=== PATIENT | female | born 1975 | race Hispanic/Latino ===

== ENCOUNTER 2020-05-27 04:16 | Inpatient (IN) | payer SELFPAY ==
[2020-05-27 05:07] LABS: Basophils % 0.3 % (0-1.3); Hematocrit 49.8 % (36.0-45.0); MPV 8.6 fL (7.6-11.3); RBC Red Blood Cell Count 5.63 M/uL (3.86-4.86)
[2020-05-27] MEDS ORDERED: NA CHLORIDE 0.9% 2,000 ML ONE (05:09)
[2020-05-27 05:34] LABS: Arterial Blood Carboxyhemoglob 0.9 % (0-1.5); Blood Gas Oxyhemoglobin 90.3 % (94-97)
[2020-05-27 05:47] LABS: ALT/SGPT 33 U/L (12-78); Albumin 3.3 g/dL (3.4-5.0); Alkaline Phosphatase 126 U/L (45-117); Amylase 38 U/L (25-115); BUN Blood Urea Nitrogen 22 mg/dL (7-18); Bilirubin Direct 0.1 mg/dL (0-0.2); Bilirubin Total 0.5 mg/dL (0.2-1.0); CKMB Creatine Kinase MB < 1.0 ng/mL (0.3-3.6); Creatine Phosphokinase 33 U/L (26-192); Lipase 125 U/L (73-393); Protein, Total 8.9 g/dL (6.4-8.2); Sodium Level 141 mmol/L (136-145); Troponin (Emerg Dept Use Only) < 0.02 ng/mL (0.0-0.045)
[2020-05-27 06:00] LABS: AST/SGOT 37 U/L (15-37); Bicarbonate 7 mmol/L (21-32); Glucose Level 412 mg/dL (74-106); Potassium 4.1 mmol/L (3.5-5.1)
[2020-05-27 06:02] LABS: Blood Morphology Comment NOT SEEN (NOT SEEN); Platelet Estimate ADEQ; Platelets, Giant FEW
[2020-05-27 06:05] LABS: Urine Bacteria <20 /HPF (<20); Urine RBC <5 /HPF (NONE SEEN); Urine Yeast FEW (NONE SEEN)
[2020-05-27 06:05] LABS: Urine Blood TRACE (NEG); Urine Glucose 2+ (NEG); Urine Protein 1+ (NEG); Urine Specific Gravity 1.025 (1.005-1.030)
[2020-05-27] MEDS ORDERED: AZITHROMYCIN 500 MG INJ IVPB ONE (06:25)
[2020-05-27] MEDS ORDERED: NA CHLORIDE 0.9% 250 ML ONE (06:27)
[2020-05-27] MEDS ORDERED: NA CHLORIDE 0.9% 100 ML ONE (06:27)
[2020-05-27] MEDS ORDERED: INSULIN -REGULAR HUMAN 50 UNIT/0.5 ML ML ONE (06:27)
[2020-05-27] MEDS ORDERED: NA CHLORIDE 0.9% 1,000 ML ONE (06:28)
[2020-05-27] MEDS ORDERED: CEFTRIAXONE/SWI 1gm 1 GM/10 ML SYR ONE (06:28)
--- NOTE | 2020-05-27 07:03 | ER ---
Nurse's Notes [facility] Name: Yaa Gregg Age: 45 yrs Sex: Female : 1975 Arrival Date: 05/27/2020 Time: 04:19 Bed 8 Private MD: Diagnosis: Diabetes mellitus due to underlying condition with ketoacidosis without coma;Dyspnea, unspecified Presentation: 05/27 04:30 Chief complaint: Patient's son or daughter states: complaining of shortness of breath rr5 started 1 week ago and it gets worse today when she walking or moving she is having difficulty of breathing. she tested positive last 05/20/20, have been swab last 05/17/20. 04:30 Coronavirus screen: Client denies travel out of the [place] in the last 14 days. rr5 difficulty breathing, fatigue, shortness of breath, Client presents with at least one sign or symptom that may indicate coronavirus-19. Standard/surgical mask placed on the client. Provider contacted for isolation considerations. Client reports previous positive COVID test result. Date of collection: May 17, [address] [facility] [address] Staff notified of need for isolation. Ebola Screen: Patient negative for fever greater than or equal to 101.5 degrees Fahrenheit, and additional compatible Ebola Virus Disease symptoms Patient denies exposure to infectious person. Patient denies travel to an Ebola-affected area in the 21 days before illness onset. Initial Sepsis Screen: Does the patient meet any 2 criteria? RR > 20 per min. HR > 90 bpm. Does the patient have a suspected source of infection? Yes: Productive cough/pneumonia If YES to both, name of provider notified: Conor Lr MD. Risk Assessment: Do you want to hurt yourself or someone else? Patient reports no desire to harm self or others. Onset of symptoms was May 27, 2020. 04:30 Method Of Arrival: Wheelchair rr5 04:30 Acuity: ANGI 2 rr5 Triage Assessment: 05:03 General: Appears distressed. Respiratory: Onset: The symptoms/episode began/occurred mg2 gradually, the patient has moderate shortness of breath. 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 - Social history:: Smoking status: unknown Patient/guardian denies using alcohol, street drugs. Screenin:38 Abuse screen: Denies threats or abuse. Denies injuries from another. Nutritional rr5 screening: No deficits noted. Tuberculosis screening: No symptoms or risk factors identified. Fall Risk IV access (20 points). Total Verduzco Fall Scale indicates No Risk (0-24 pts). Assessment: 05:02 General: Appears distressed, Behavior is calm, cooperative. Pain: Complains of pain in mg2 chest. Neuro: Level of Consciousness is awake, alert, obeys commands, Oriented to person, place, time, situation. Cardiovascular: Rhythm is sinus tachycardia. Respiratory: Reports shortness of breath on exertion Airway is patent Respiratory effort is even, labored, Respiratory pattern is regular, symmetrical, tachypnea GI: No signs and/or symptoms were reported involving the gastrointestinal system. : No signs and/or symptoms were reported regarding the genitourinary system. EENT: No signs and/or symptoms were reported regarding the EENT system. Derm: Skin is intact, is healthy with good turgor, Skin is pink, warm \T\ dry. normal. Musculoskeletal: Circulation, motion, and sensation intact. Capillary refill < 3 seconds. 05:40 Reassessment: Patient appears in no apparent distress at this time. Patient and/or rr5 family updated on plan of care and expected duration. Pain level reassessed. 06:00 Reassessment: patient is on DKA, ED provider with order made and carried out'. rr5 06:13 Reassessment: patient sent to CT scan via [facility]. mg2 06:30 Reassessment: Patient appears in no apparent distress at this time. back from CT scan rr5 insulin drip started. fast breathing noted hooked to nasal cannula at 3 liters per minute. 07:20 Reassessment: RECD REPORT FROM HENNY MATTHEW. 45YO HF P/W SOB, RECENT +COV TEST. PT ADMIT bp FOR DKA, INSULIN GTT AT 8 UNIT/HR. 09:00 Reassessment: No changes from previously documented assessment. Patient and/or family bp updated on plan of care and expected duration. Pain level reassessed. Patient is alert, oriented x 3, equal unlabored respirations, skin warm/dry/pink. PT REMAINS 8 UNIT/HR INSULIN R. 10:00 Reassessment: PT TO ER HOLD, SEE [facility] FOR FURTHER CHARTING. bp Vital Signs: 04:30 BP 182 / 112; Pulse 112; Resp 35; Temp 97.9; Pulse Ox 95% ; Weight 79.38 kg; Height 5 rr5 ft. 0 in. (152.40 cm); Pain 7/10; 05:03 BP 160 / 94; Pulse 109; Resp 33; Pulse Ox 97% on R/A; mg2 06:31 BP 154 / 86; Pulse 109; Resp 34; Pulse Ox 98% on 3 lpm NC; mg2 06:53 BP 160 / 96; Pulse 123; Resp 33; Temp 97.8; Pulse Ox 98% on 3 lpm NC; rr5 07:00 BP 148 / 88; Pulse 116; Resp 36; Pulse Ox 100% ; bp 08:00 BP 146 / 89; Pulse 106; Resp 31; Pulse Ox 96% ; bp 09:00 BP 157 / 88; Pulse 107; Resp 36; Pulse Ox 98% ; bp 10:00 BP 148 / 72; Pulse 94; Resp 29; Pulse Ox 96% ; bp 04:30 Body Mass Index 34.18 (79.38 kg, 152.40 cm) rr5 ED Course: 04:19 Patient arrived in ED. cl3 04:21 Henny Torres, TIFF is Primary Nurse. rr5 04:23 Conor Lr MD is Attending Physician. tw4 04:37 Triage completed. rr5 04:38 Arm band placed on right wrist. rr5 04:38 Patient has correct armband on for positive identification. Placed in gown. Bed in low rr5 position. Call light in reach. secured entrance monitor on. Pulse ox on. NIBP on. 04:38 EKG done, by ED staff, reviewed by Conor Lr MD. rr5 04:50 Inserted saline lock: 20 gauge in left hand, using aseptic technique. ,using aseptic rr5 technique. inserted by agustín MATTHEW Blood collected. 04:57 Chest Single View XRAY In Process Unspecified. EDMS 05:03 No provider procedures requiring assistance completed. mg2 05:18 Urine collected: clean catch specimen, clear. rr5 05:43 Notified ED physician of a critical lab result(s). BiCarb 7, Glucose 412. sg 06:00 Inserted saline lock: 22 gauge in right forearm, using aseptic technique. mg2 06:34 CT Chest For PE Angio In Process Unspecified. EDMS 07:02 Misael Lee MD is Hospitalizing Provider. tw4 07:06 Primary Nurse role handed off by Henny Torres, RN bp 07:06 Godfrey Curtis, TIFF is Primary Nurse. bp 10:25 Patient admitted, IV remains in place. bp Administered Medications: 05:04 Not Given (Physician Discretion): NS 0.9% (30 ml/kg) 30 ml/kg IV at bolus once; Sepsis mg2 Protocol 05:04 Drug: NS 0.9% 1000 ml Route: IV; Rate: 1000 ml; Site: left hand; mg2 06:00 Follow up: Response: No adverse reaction; IV Status: Completed infusion; IV Intake: rr5 1000ml 06:24 Drug: Insulin Drip - (Insulin Regular Human 100 units, NS 0.9% 100 ml) {Co-Signature: mg2 rr5 (Henny Torres RN).} Route: IV; Rate: calculated rate; Site: right forearm; 06:25 Drug: Rocephin - (cefTRIAXone) 1 grams Route: IVPB; Infused Over: 30 mins; Site: left mg2 hand; 07:00 Follow up: Response: No adverse reaction; IV Status: Completed infusion; IV Intake: [id number] 06:25 Drug: AZITHromycin 500 mg Route: IVPB; Infused Over: 1 hrs; Site: left hand; mg2 06:25 Drug: NS 0.9% 1000 ml Route: IV; Rate: 1 bolus; Site: left hand; mg2 Intake: 06:00 IV: 1000ml; Total: 1000ml. rr5 07:00 IV: 10ml; Total: 1010ml. rr5 06:53 voided 3x rr5 Output: 06:53 Other: 3; Total: 0ml. rr5 06:53 voided 3x rr5 Outcome: 07:02 Decision to Hospitalize by Provider. tw4 10:00 Admitted to ER Hold. Please see [facility] for further documentation. bp 10:00 Condition: stable 10:00 Instructed on the need for admit. 18:46 Patient left the ED. tw2 Signatures: Dispatcher [employer] ED[facility] Mitesh Yin, RN RN Timothy Andrewsa, RN RN tw2 Godfrey Curtis, RN RN bp Conor Lr MD MD tw4 Masoud Connell RN RN mg2 Henny Torres RN RN rr5 Ronnie Slaughter 3 Henny Torres RN rr5 Corrections: (The following items were deleted from the chart) 06:32 06:31 BP 154 / 86; Pulse 109bpm; Resp 34bpm; Pulse Ox 98%; mg2 mg2 06:37 06:30 Reassessment: Patient appears in no apparent distress at this time. back from CT rr5 scan insulin drip started rr5
--- NOTE | 2020-05-27 07:03 | EDPHYS ---
Physician Documentation [facility] Name: Yaa Gregg Age: 45 yrs Sex: Female : 1975 Arrival Date: 05/27/2020 Time: 04:19 Bed 8 Private MD: ED Physician Conor Lr HPI: 05/27 06:03 This 45 yrs old Female presents to ER via Wheelchair with complaints of tw4 Breathing Difficulty, Covid+. 06:03 The patient has shortness of breath at rest. Onset: The symptoms/episode began/occurred tw4 1 week(s) ago. Duration: The symptoms are continuous, and are unchanged since they started. The patient's shortness of breath has no apparent modifying factors. Associated signs and symptoms: The patient has no apparent associated signs or symptoms. The patient has not experienced similar symptoms in the past. diagnosed with covid on 05/17. 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 - Social history:: Smoking status: unknown Patient/guardian denies using alcohol, street drugs. ROS: 06:03 Constitutional: Negative for fever, chills, and weight loss, Eyes: Negative for injury, tw4 pain, redness, and discharge, Cardiovascular: Negative for chest pain, palpitations, and edema, Abdomen/GI: Negative for abdominal pain, nausea, vomiting, diarrhea, and constipation, Back: Negative for injury and pain, MS/Extremity: Negative for injury and deformity, Skin: Negative for injury, rash, and discoloration, Neuro: Negative for headache, weakness, numbness, tingling, and seizure. 06:03 Respiratory: Positive for cough, shortness of breath, Negative for cough, dyspnea on exertion, hemoptysis, orthopnea, pleurisy. Exam: 06:03 Constitutional: This is a well developed, well nourished patient who is awake, alert, tw4 and in no acute distress. Head/Face: Normocephalic, atraumatic. Chest/axilla: Normal chest wall appearance and motion. Nontender with no deformity. No lesions are appreciated. Cardiovascular: Regular rate and rhythm with a normal S1 and S2. No gallops, murmurs, or rubs. Normal PMI, no JVD. No pulse deficits. Respiratory: Lungs have equal breath sounds bilaterally, clear to auscultation and percussion. No rales, rhonchi or wheezes noted. No increased work of breathing, no retractions or nasal flaring. Abdomen/GI: Soft, non-tender, with normal bowel sounds. No distension or tympany. No guarding or rebound. No evidence of tenderness throughout. Back: No spinal tenderness. No costovertebral tenderness. Full range of motion. Skin: Warm, dry with normal turgor. Normal color with no rashes, no lesions, and no evidence of cellulitis. MS/ Extremity: Pulses equal, no cyanosis. Neurovascular intact. Full, normal range of motion. Neuro: Awake and alert, GCS 15, oriented to person, place, time, and situation. Cranial nerves II-XII grossly intact. Motor strength 5/5 in all extremities. Sensory grossly intact. Cerebellar exam normal. Normal gait. Vital Signs: 04:30 BP 182 / 112; Pulse 112; Resp 35; Temp 97.9; Pulse Ox 95% ; Weight 79.38 kg; Height 5 rr5 ft. 0 in. (152.40 cm); Pain 7/10; 05:03 BP 160 / 94; Pulse 109; Resp 33; Pulse Ox 97% on R/A; mg2 06:31 BP 154 / 86; Pulse 109; Resp 34; Pulse Ox 98% on 3 lpm NC; mg2 06:53 BP 160 / 96; Pulse 123; Resp 33; Temp 97.8; Pulse Ox 98% on 3 lpm NC; rr5 07:00 BP 148 / 88; Pulse 116; Resp 36; Pulse Ox 100% ; bp 08:00 BP 146 / 89; Pulse 106; Resp 31; Pulse Ox 96% ; bp 09:00 BP 157 / 88; Pulse 107; Resp 36; Pulse Ox 98% ; bp 10:00 BP 148 / 72; Pulse 94; Resp 29; Pulse Ox 96% ; bp 04:30 Body Mass Index 34.18 (79.38 kg, 152.40 cm) rr5 MDM: 05:10 Patient medically screened. tw4 06:03 Data reviewed: vital signs, nurses notes. Counseling: I had a detailed discussion with tw4 the patient and/or guardian regarding: the historical points, exam findings, and any diagnostic results supporting the discharge/admit diagnosis. Special discussion: I discussed with the patient/guardian in detail that at this point there is no indication for admission to the hospital. It is understood, however, that if the symptoms persist or worsen the patient needs to return immediately for re-evaluation. 07:06 Differential diagnosis: CHF exacerbation, Pneumothorax Sepsis Unstable Angina. tw4 Antibiotic administration: Rocephin and Zithromax given. Data interpreted: Pulse oximetry: Interpretation:. Physician consultation: Misael Lee MD regarding admission, to the ICU, patient's condition, and will see patient in ED. 05/27 04:31 Order name: Amylase, Serum; Complete Time: 06:07 [facility] 05/27 04:31 Order name: Basic Metabolic Panel; Complete Time: 06:07 [facility] 05/27 06:07 Interpretation: Normal except: CL 109; CO2 7; GLUC 412; BUN 22. [facility] 05/27 04:31 Order name: Blood Culture Adult (2) [facility] 05/27 04:31 Order name: CBC with Diff; Complete Time: 06:07 [facility] 05/27 06:07 Interpretation: Normal except: WBC 19.5; RBC 5.63; HGB 15.8; HCT 49.8; MCHC 31.8. [facility] 05/27 04:31 Order name: Ckmb; Complete Time: 06:07 [facility] 05/27 04:31 Order name: CPK; Complete Time: 06:07 [facility] 05/27 04:31 Order name: Lactate; Complete Time: 06:07 [facility] 05/27 06:07 Interpretation: Normal except: LAC 2.4. [facility] 05/27 04:31 Order name: LFT's; Complete Time: 06:07 [facility] 05/27 06:08 Interpretation: Normal except: A/G 0.6; ALB 3.3; GLOB 5.6; TP 8.9; ALK 126. [facility] 05/27 04:31 Order name: Lipase; Complete Time: 06:07 [facility] 05/27 04:31 Order name: Procalcitonin; Complete Time: 17:32 [facility] 05/27 04:31 Order name: Protime (+inr); Complete Time: 06:07 5 05/27 04:31 Order name: Ptt, Activated; Complete Time: 06:07 5 05/27 06:08 Interpretation: Normal except: PTT 23.1. tw4 05/27 04:31 Order name: Troponin (emerg Dept Use Only); Complete Time: 06:07 5 05/27 04:31 Order name: Urine Microscopic Only; Complete Time: 06:07 5 05/27 06:08 Interpretation: Normal except: BUD PRESENT. tw4 05/27 05:03 Order name: Glucose, Ancillary Testing; Complete Time: 05:09 EDMS 05/27 05:09 Order name: Manual Differential; Complete Time: 06:07 EDMS 05/27 06:08 Interpretation: Normal except: LYM 6; SEGS 92. tw4 05/27 05:16 Order name: ABG; Complete Time: 06:07 4 05/27 05:23 Order name: Urine Dipstick--Ancillary (enter results); Complete Time: 06:07 2 05/27 05:23 Order name: Urine --Ancillary (enter results); Complete Time: 06:07 2 /16 06:02 Order name: Acetone, Serum; Complete Time: 17:32 tw4 05/27 06:06 Order name: Urine Culture EDMI 05/27 07:13 Order name: COVID-19 bd 05/27 07:37 Order name: Glucose, Ancillary Testing; Complete Time: 17:32 EDMS 12 08:05 Order name: Acetone Level EDMS 05/27 08:05 Order name: Acetone Level; Complete Time: 17:32 EDMS 05/27 08:05 Order name: Acetone Level; Complete Time: 17:32 EDMS 05/27 08:05 Order name: Acetone Level; Complete Time: 17:32 EDMS 05/27 08:05 Order name: Basic Metabolic Panel EDMS 05/27 08:05 Order name: Basic Metabolic Panel; Complete Time: 17:32 EDMS 05/27 08:05 Order name: Basic Metabolic Panel; Complete Time: 17:32 EDMS 05/27 04:31 Order name: Chest Single View XRAY; Complete Time: 17:32 5 05/27 05:10 Order name: CT Chest For PE Angio tw4 05/27 08:05 Order name: Basic Metabolic Panel; Complete Time: 17:32 EDMS 05/27 08:05 Order name: Calcium Level EDMS 05/27 08:05 Order name: Calcium Level EDMS 05/27 08:05 Order name: Calcium Level EDMS 05/27 08:05 Order name: Calcium Level EDMS 05/27 08:05 Order name: Lipid Profile EDMS 05/27 08:05 Order name: Lipid Profile EDMS 05/27 08:05 Order name: Magnesium EDMS 05/27 08:05 Order name: Magnesium EDMS 05/27 08:05 Order name: Magnesium EDMS 05/27 08:05 Order name: Magnesium EDMS 05/27 08:05 Order name: Phosphorus EDMS 05/27 08:05 Order name: Phosphorus EDMS 05/27 08:06 Order name: Phosphorus EDMS 05/27 08:06 Order name: Phosphorus EDMS 05/27 08:31 Order name: Lactate Sepsis 2 HR Follow-up; Complete Time: 17:32 EDMS 05/27 09:01 Order name: Glucose, Ancillary Testing; Complete Time: 17:32 EDMS 05/27 10:41 Order name: Glucose, Ancillary Testing; Complete Time: 17:32 EDMS 05/27 11:09 Order name: SARS-COV-2 RT PCR; Complete Time: 17:32 EDMS 05/27 11:41 Order name: Glucose, Ancillary Testing; Complete Time: 17:32 EDMS 05/27 12:45 Order name: Glucose, Ancillary Testing; Complete Time: 17:32 EDMS 05/27 14:22 Order name: Glucose, Ancillary Testing; Complete Time: 17:32 EDMS 05/27 15:16 Order name: Glucose, Ancillary Testing; Complete Time: 17:32 EDMS 05/27 16:28 Order name: Glucose, Ancillary Testing; Complete Time: 17:32 EDMS 05/27 17:45 Order name: Glucose, Ancillary Testing EDMS 05/27 04:31 Order name: Accucheck; Complete Time: 04:49 rr5 05/27 04:31 Order name: Cardiac monitoring; Complete Time: 04:49 rr5 05/27 04:31 Order name: EKG - Nurse/Tech; Complete Time: 04:49 rr5 05/27 04:31 Order name: IV Saline Lock - Large Bore; Complete Time: 04:50 rr5 05/27 04:31 Order name: Labs collected and sent; Complete Time: 04:50 rr5 05/27 04:31 Order name: O2 Per Protocol; Complete Time: 04:50 rr5 05/27 04:31 Order name: O2 Sat Monitoring; Complete Time: 04:50 rr5 05/27 04:31 Order name: Urine Dipstick-Ancillary (obtain specimen); Complete Time: 05:18 rr5 05/27 04:34 Order name: IV Saline Lock; Complete Time: 04:50 tw4 05/27 05:18 Order name: Urine Test (obtain specimen); Complete Time: 05:18 rr5 05/27 08:06 Order name: CONS Pharmacy Consult EDMS 05/27 08:06 Order name: Dietitian Consult EDMS 05/27 08:06 Order name: NPO EDMS EC:27 Rate is 116 beats/min. Rhythm is regular. QRS [place] is Normal. CA interval is normal. tw4 QRS interval is normal. QT interval is normal. No Q waves. T waves are Normal. T waves are Inverted in leads aVF, V5, V6. No ST changes noted. Clinical impression: Sinus tachycardia. Interpreted by me. Reviewed by me. Administered Medications: 05:04 Not Given (Physician Discretion): NS 0.9% (30 ml/kg) 30 ml/kg IV at bolus once; Sepsis mg2 Protocol 05:04 Drug: NS 0.9% 1000 ml Route: IV; Rate: 1000 ml; Site: left hand; mg2 06:00 Follow up: Response: No adverse reaction; IV Status: Completed infusion; IV Intake: rr5 1000ml 06:24 Drug: Insulin Drip - (Insulin Regular Human 100 units, NS 0.9% 100 ml) {Co-Signature: mg2 rr5 (Alireza Torres RN).} Route: IV; Rate: calculated rate; Site: right forearm; 06:25 Drug: Rocephin - (cefTRIAXone) 1 grams Route: IVPB; Infused Over: 30 mins; Site: left mg2 hand; 07:00 Follow up: Response: No adverse reaction; IV Status: Completed infusion; IV Intake: 00zosl0 06:25 Drug: AZITHromycin 500 mg Route: IVPB; Infused Over: 1 hrs; Site: left hand; mg2 06:25 Drug: NS 0.9% 1000 ml Route: IV; Rate: 1 bolus; Site: left hand; mg2 Disposition: 05/27/20 07:02 Hospitalization ordered by Misael Lee for Inpatient Admission. Preliminary diagnosis are Diabetes mellitus due to underlying condition with ketoacidosis without coma, Dyspnea, unspecified. - Bed requested for Intensive Care Unit. - Status is Inpatient Admission. tw2 - Condition is Fair. - Problem is new. - Symptoms are unchanged. Signatures: Dispatcher [employer] EDMS Linda Villalobos, LATIN AMERICAN STUDIES DIRECTOR-C LATIN AMERICAN STUDIES DIRECTOR-Csnw Megan West, TIFF RN aa5 Jarad Bhardwaj PA PA jr8 Abbi Dowell RN RN tw2 Godfrey Curtis RN RN bp Conor Lr MD MD tw4 Masoud Connell RN RN mg2 Alireza Torres RN RN rr5 Alireza Torres RN rr5 Corrections: (The following items were deleted from the chart) 06:05 06:03 Constitutional: Negative for fever, chills, and weight loss, Eyes: Negative for tw4 injury, pain, redness, and discharge, Cardiovascular: Negative for chest pain, palpitations, and edema, Respiratory: Negative for shortness of breath, cough, wheezing, and pleuritic chest pain, Abdomen/GI: Negative for abdominal pain, nausea, vomiting, diarrhea, and constipation, Back: Negative for injury and pain, Skin: Negative for injury, rash, and discoloration, Neuro: Negative for headache, weakness, numbness, tingling, and seizure, tw4 10:21 07:02 Hospitalization Ordered by Misael Lee MD for Inpatient Admission. Preliminary bp diagnosis is Diabetes mellitus due to underlying condition with ketoacidosis without coma; Dyspnea, unspecified. Bed requested for Intensive Care Unit. Status is Inpatient Admission. Condition is Fair. Problem is new. Symptoms are unchanged. tw4 17:23 10:21 05/27/2020 07:02 Hospitalization Ordered by Misael Lee MD for Inpatient aa5 Admission. Preliminary diagnosis is Diabetes mellitus due to underlying condition with ketoacidosis without coma; Dyspnea, unspecified. Bed requested for [facility] ER HOLD. Status is Inpatient Admission. Condition is Fair. Problem is new. Symptoms are unchanged. bp 18:46 17:23 05/27/2020 07:02 Hospitalization Ordered by Misael Lee MD for Inpatient tw2 Admission. Preliminary diagnosis is Diabetes mellitus due to underlying condition with ketoacidosis without coma; Dyspnea, unspecified. Bed requested for Intensive Care Unit. Status is Inpatient Admission. Condition is Fair. Problem is new. Symptoms are unchanged. aa5
[2020-05-27] MEDS ORDERED: INSULIN -REGULAR HUMAN 100 UNIT in NA CHLORIDE 0.9% 100 ML IV SCH (08:15)
--- NOTE | 2020-05-27 08:35 | RAD REPORT ---
EXAM DESCRIPTION: RAD - Chest Single View - 05/27/2020 4:57 am CLINICAL HISTORY: CHEST PAIN Chest pain. COMPARISON: ABDOMEN ACUTE SERIES dated 01/24/2008; Chest For Pe Angio dated 05/27/2020 FINDINGS: Portable technique limits examination quality. Subtle interstitial prominence is noted. Viral pneumonitis is a possibility. The heart is normal in s ize. No displaced fractures.
[2020-05-27] MEDS: NA CHLORIDE 0.9% 1,000 ML IV SCH ×2 (09:00→14:00)
[2020-05-27] MEDS: D5 0.45 NS 1,000 ML IV SCH ×3 (09:00→21:08)
[2020-05-27] MEDS ORDERED: CEFTRIAXONE 1 GM/NS 50 ML 50 ML IV SCH (09:00)
[2020-05-27] MEDS: ENOXAPARIN 40 MG/0.4 ML SQ SCH (09:00)
[2020-05-27 09:31] LABS: BUN Blood Urea Nitrogen 16 mg/dL (7-18); Bicarbonate 8 mmol/L (21-32); Glucose Level 250 mg/dL (74-106); Potassium 3.6 mmol/L (3.5-5.1); Sodium Level 147 mmol/L (136-145)
--- NOTE | 2020-05-27 10:35 | RAD REPORT ---
EXAM DESCRIPTION: Chest For Pe Angio CLINICAL HISTORY: The patient is 45 years old and is Female; SOB TECHNIQUE: Axial computed tomographic angiography images of the chest with intravenous contrast. S agittal and coronal reformatted images were created and reviewed. This CT exam was performed using one or more of the following dose reduction techniques: automated exposure control, adjustment of t he mA and/or kV according to patient size, and/or use of iterative reconstruction technique. MIP re constructed images were created and reviewed. COMPARISON: No relevant prior studies available. FINDINGS: Limitations: Respiratory motion limits the evaluation. Pulmonary arteries: No definite PE identified. Aorta: No acute findings. No thoracic aortic aneurysm. Lungs: Multilobar groundglass opacities bilaterally, greatest in the lower lobes. Pleural space: No pleural effusion or pneumothorax. Heart: Unremarkable. No cardiomegaly. No significant pericardial effusion. No evidence of RV dysfunction. Bones/joints: No acute fracture. No dislocation. Soft tissues: Unremarkable. Lymph nodes: Unremarkable. No enlarged lymph nodes. Liver: Fatty liver. IMPRESSION: 1. Respiratory motion limits the evaluation. 2. No definite PE identified. 3. Multilobar groundglass opacities bilaterally, greatest in the lower lobes. Imaging features can be seen with viral pneumonia, though are nonspecific and can occur with a variety of infectious and n oninfectious processes. PneInd Electronically signed by: Sheridan Larson MD 05/27/2020 6:46 AM LABORATORY ASSISTANT Due to temporary technical issues with the PACS/Fluency reporting system, reports are being signed by the in house radiologist without review as a courtesy to ensure prompt reporting. The interpreting r adiologist is fully responsible for the content of the report.
[2020-05-27] MEDS ORDERED: ENOXAPARIN 40 MG/0.4 ML SQ ONE (12:52)
[2020-05-27] MEDS ORDERED: D5 0.45 NS 1,000 ML IV ONE (12:52)
[2020-05-27 13:12] LABS: BUN Blood Urea Nitrogen 14 mg/dL (7-18); Glucose Level 206 mg/dL (74-106); Potassium 3.9 mmol/L (3.5-5.1)
[2020-05-27 13:17] LABS: Bicarbonate 13 mmol/L (21-32); Sodium Level 148 mmol/L (136-145)
[2020-05-27 16:58] LABS: BUN Blood Urea Nitrogen 12 mg/dL (7-18); Bicarbonate 15 mmol/L (21-32); Glucose Level 208 mg/dL (74-106); Potassium 3.5 mmol/L (3.5-5.1); Sodium Level 151 mmol/L (136-145)
--- NOTE | 2020-05-27 19:15 | EKG ---
Test Date: 2020-05-27 Test Time: 04:26:33 Furnace Door Tender: MG MEASUREMENT RESULTS: Intervals: Rate: 116 OK: 124 QRSD: 82 QT: 318 QTc: 442 [place]: P: 56 OK: 124 QRS: 63 T: -2 INTERPRETIVE STATEMENTS: Sinus tachycardia T wave abnormality, consider inferior ischemia Abnormal ECG No previous ECG available for comparison Electronically Signed On 05-27-20 19:12:45 PRINCIPAL GIFTS OFFICER by Fuad Reyes
[2020-05-27] MEDS ORDERED: NACHLORIDE 0.45% 1,000 ML IV SCH (21:00)
[2020-05-27] MEDS ORDERED: KCL 20 MEQ/100 mL IVPB 20 MEQ/100 ML BAG IV SCH ×2 (21:00→23:45)
[2020-05-27] MEDS: FENTANYL CITR 100 MCG/2 ML IV PRN (21:06)
[2020-05-27] MEDS: BENZONATATE 100 MG CAP PO PRN (21:07)
[2020-05-27 23:25] LABS: BUN Blood Urea Nitrogen 8 mg/dL (7-18); Bicarbonate 19 mmol/L (21-32); Glucose Level 197 mg/dL (74-106); Potassium 3.7 mmol/L (3.5-5.1); Sodium Level 146 mmol/L (136-145)
[2020-05-28] MEDS ORDERED: ONDANSETRON 4 MG/2 ML VIAL IV PRN (00:21)
[2020-05-28] MEDS: GUAIFENESIN/CODEINE 5ML UCUP PO PRN ×5 (00:30→22:38)
[2020-05-28] MEDS: ACETAMINOPHEN 325 MG TABLET PO PRN ×3 (00:31→11:12)
[2020-05-28 03:37] LABS: BUN Blood Urea Nitrogen 5 mg/dL (7-18); Bicarbonate 18 mmol/L (21-32); Glucose Level 212 mg/dL (74-106); Potassium 3.1 mmol/L (3.5-5.1); Sodium Level 142 mmol/L (136-145)
[2020-05-28] MEDS: FENTANYL CITR 100 MCG/2 ML IV PRN (03:41)
[2020-05-28] MEDS ORDERED: KCL 20 MEQ/100 mL IVPB 20 MEQ/100 ML BAG IV SCH (04:00)
[2020-05-28 04:01] LABS: Phosphorus 0.7 mg/dL (2.5-4.9)
[2020-05-28] MEDS: POTASSIUM PHOS IN 0.9 % NACL 15 MMOL/250 ML BAG IV PRN ×2 (04:11→09:00)
[2020-05-28] MEDS: D5 0.45 NS 1,000 ML IV SCH ×3 (05:00→17:37)
[2020-05-28] MEDS ORDERED: D50W 25 GM/50 ML SYRINGE IV PRN (05:53)
[2020-05-28] MEDS ORDERED: GLUCAGON 1 MG/VIAL IM PRN (05:53)
[2020-05-28] MEDS: INSULIN GLARGINE 100 UNITS/ML SQ SCH ×3 (06:12→16:39)
[2020-05-28] MEDS: NACHLORIDE 0.45% 1,000 ML IV SCH ×2 (06:13→11:16)
[2020-05-28] MEDS: INSULIN -REGULAR HUMAN 50 UNIT/0.5 ML ML SQ SCH ×4 (07:30→20:51)
[2020-05-28] MEDS: ENOXAPARIN 40 MG/0.4 ML SQ SCH (07:58)
[2020-05-28] MEDS: CEFTRIAXONE/SWI 1gm 1 GM/10 ML SYR IV SCH (07:58)
[2020-05-28] MEDS: BENZONATATE 100 MG CAP PO PRN ×2 (08:30→20:51)
--- NOTE | 2020-05-28 09:57 | P.HP ---
Certification for Inpatient Patient admitted to: Inpatient With expected LOS: >2 Midnights Patient will require the following post-hospital care: None Practitioner: I am a practitioner with admitting privileges, knowledge of patient current condition, hospital course, and medical plan of care. Services: Services provided to patient in accordance with Admission requirements found in Title 42 Section 412.3 of the Code of Federal Regulations Patient History Date of Service: 05/27/20 Reason for admission: Hyperglycemia; dysuria History of Present Illness: Patient is a 45-year-old female came to the hospital with poorly-controlled blood sugars. She has not been feeling well and she was recently found to have COVID-19 pneumonia. Her clinical symptoms have been declining so she came into the emergency room for further evaluation. In the emergency room she was found have elevated blood sugars and she was acidotic. Her oxygen saturations were stable. She was admitted for treatment of her diabetic ketoacidosis. Allergies No Known Allergies Allergy (Verified 05/28/20 01:38) Home Medications: NK [No Home Meds] 05/28/20 - Past Medical/Surgical History Diabetic: Yes -: Insulin dependent diabetes Past Surgical History: Patient denies surgical history - Family History Father Family History: Reviewed- Non-Contributory - Social History Smoking Status: Never smoker CD- Drugs: No Place of Residence: Home Review of Systems 10-point ROS is otherwise unremarkable Physical Examination - Vital Signs Temperature: 98.6 F Blood Pressure: 134/69 Pulse: 109 Respirations: 41 Pulse Ox (%): 93 - Physical Exam General: Alert, In no apparent distress, Oriented x3 HEENT: Atraumatic, PERRLA, Mucous membr. moist/pink, EOMI, Sclerae nonicteric Neck: Supple, 2+ carotid pulse no bruit, No LAD, Without JVD or thyroid abnormality Respiratory: Diminished, Rhonchi/gurgles Cardiovascular: Regular rate/rhythm, Normal S1 S2, No murmurs Gastrointestinal: Normal bowel sounds, Soft and benign, Non-distended, No tenderness Musculoskeletal: No clubbing, No swelling, No tenderness Integumentary: No rashes Neurological: Normal gait, Normal speech, Normal strength at 5/5 x4 extr, Normal tone, Sensation intact, Cranial nerves 3-12 intact, Normal affect Lymphatics: No axilla or inguinal lymphadenopathy Assessment & Plan - Problems (Diagnosis) (1) Diabetic ketoacidosis Current Visit: Yes Status: Acute (2) Pneumonia due to COVID-19 virus Current Visit: Yes Status: Acute - Plan 1. Continue with albuterol inhaler therapy; IV dexamethasone; zinc and vitamin-C 2. O2 per protocol 3. Consider Remdesivir if patient's O2 sats decrease 4. IV hydration 5. Insulin drip 6. Accu-Cheks q1h 7. Measure anion gap every 4 hrs 8. Resume diet once anion gap is closed and will resume insulin pump 9. Diabetic education 10. Long-acting insulin once patient able to tolerate diet and at that time will discontinue insulin drip Discharge Plan: Home Plan to discharge in: Greater than 2 days - Advance Directives Does patient have a Living Will: No Does patient have a Durable POA for Healthcare: No - Code Status/Comfort Care Code Status Assessed: Yes Code Status: Full Code Critical Care: No Time Spent Managing PTS Care (In Minutes): 45
[2020-05-28] MEDS ORDERED: METHYLPREDNISOLONE 125 MG INJ IV ONE (10:09)
[2020-05-28] MEDS: METHYLPREDNISOLONE 125 MG INJ IV SCH ×2 (11:05→17:10)
[2020-05-28 12:44] LABS: Absolute Lymphocytes (CBC) 0.6 K/uL (0.7-4.9); Basophils % 0.2 % (0-1.3); Hematocrit 41.1 % (36.0-45.0); Lymphocytes % 4.3 % (15.3-44.8); MPV 7.8 fL (7.6-11.3); RBC Red Blood Cell Count 4.86 M/uL (3.86-4.86)
[2020-05-28] MEDS ORDERED: NACHLORIDE 0.45% 1,000 ML IV SCH (12:44)
[2020-05-28 13:06] LABS: BUN Blood Urea Nitrogen 4 mg/dL (7-18); Bicarbonate 19 mmol/L (21-32); Glucose Level 230 mg/dL (74-106); Magnesium 1.8 mg/dL (1.8-2.4); NT PRO-BNP 468 pg/mL (<125); Phosphorus 2.1 mg/dL (2.5-4.9); Sodium Level 141 mmol/L (136-145)
[2020-05-28 13:08] LABS: Potassium 2.9 mmol/L (3.5-5.1)
--- NOTE | 2020-05-28 13:46 | P.PN ---
Date of Service: 05/28/20 Patient is more hypoxic today. She is interested in trying remdesivir as she feels she is not getting better. Will notify pharmacy so hopefully they can approve it for patient's use as approval is required prior to using remdesivir.
[2020-05-28] MEDS ORDERED: MAGNESIUM SULFATE 1 gm IVPB 1 GM/100 ML BAG IV ONE (14:00)
[2020-05-28] MEDS ORDERED: POTASSIUM PHOS 30 MM in NS 500 ML IV ONE (14:00)
[2020-05-28] MEDS ORDERED: Remdesivir 200 MG in NA CHLORIDE 0.9% 250 ML IV ONE (14:00)
[2020-05-28] MEDS ORDERED: FUROSEMIDE 20 MG/ 2ML VIAL IV ONE (17:00)
[2020-05-28] MEDS ORDERED: POTASSIUM CL SA 10 MEQ TAB PO ONE (22:38)
[2020-05-28] MEDS: MELATONIN 5 MG TABLET PO PRN (22:39)
[2020-05-29] MEDS: METHYLPREDNISOLONE 125 MG INJ IV SCH ×2 (00:41→05:19)
[2020-05-29] MEDS: GUAIFENESIN/CODEINE 5ML UCUP PO PRN ×3 (05:18→23:05)
[2020-05-29 07:18] LABS: ALT/SGPT 94 U/L (12-78); AST/SGOT 71 U/L (15-37); Albumin 2.6 g/dL (3.4-5.0); Alkaline Phosphatase 195 U/L (45-117); BUN Blood Urea Nitrogen 11 mg/dL (7-18); Bicarbonate 18 mmol/L (21-32); Bilirubin Direct 0.1 mg/dL (0-0.2); Bilirubin Total 0.6 mg/dL (0.2-1.0); Glucose Level 283 mg/dL (74-106); Magnesium 2.5 mg/dL (1.8-2.4); Phosphorus 2.6 mg/dL (2.5-4.9); Potassium 3.2 mmol/L (3.5-5.1); Protein, Total 7.5 g/dL (6.4-8.2); Sodium Level 146 mmol/L (136-145)
--- NOTE | 2020-05-29 07:37 | P.PN ---
Subjective Date of Service: 05/28/20 Patient has been more hypoxic. Started Remdesivir. Patient is clinically improved from her diabetic ketoacidosis but her oxygen saturations have not really improved and had actually worsened. Monitor LFTs. Review of Systems 10-point ROS is otherwise unremarkable Physical Examination - Vital Signs Temperature: 97.5 F Blood Pressure: 148/84 Pulse: 102 Respirations: 31 Pulse Ox (%): 91 - Physical Exam General: Alert, In no apparent distress, Oriented x3 Respiratory: Diminished, Other (Patient appears more tachypneic today) Gastrointestinal: Normal bowel sounds, Soft and benign, Non-distended, No tenderness Musculoskeletal: No clubbing, No swelling, No tenderness Neurological: Sensation intact, Cranial nerves 3-12 intact - Studies Medications List Reviewed: Yes Assessment & Plan - Problems (Diagnosis) (1) Diabetic ketoacidosis Current Visit: Yes Status: Acute (2) Pneumonia due to COVID-19 virus Current Visit: Yes Status: Acute (3) Hypoxemia Current Visit: Yes Status: Acute - Plan 1. Continue with albuterol inhaler therapy; IV steroids; zinc and vitamin-C 2. O2 per protocol 3. Started Remdesivir -monitor LFTs closely 4. IV hydration 5. Long-acting insulin 6. Accu-Cheks q4h; strict blood sugar control 7. Monitor electrolytes 8. Diabetic diet Discharge Plan: Home Plan to discharge in: Greater than 2 days - Advance Directives Does patient have a Living Will: No Does patient have a Durable POA for Healthcare: No - Code Status/Comfort Care Code Status: Full Code Critical Care: Yes Time Spent Managing PTS Care (In Minutes): 40
[2020-05-29 07:38] VITALS: BMI 31.1
[2020-05-29] MEDS ORDERED: POTASSIUM 25 MEQ EFFERV TAB PO ONE ×2 (08:00→20:00)
[2020-05-29] MEDS: CEFTRIAXONE/SWI 1gm 1 GM/10 ML SYR IV SCH (08:49)
[2020-05-29] MEDS: INSULIN 70/30 100 UNITS/ML SQ SCH (08:50)
[2020-05-29] MEDS: ENOXAPARIN 40 MG/0.4 ML SQ SCH (08:50)
[2020-05-29] MEDS: INSULIN -REGULAR HUMAN 50 UNIT/0.5 ML ML SQ SCH ×4 (08:51→21:05)
[2020-05-29] MEDS: Remdesivir 100 MG in NA CHLORIDE 0.9% 250 ML IV SCH (08:52)
[2020-05-29] MEDS ORDERED: METHYLPREDNISOLONE 125 MG INJ IV SCH (09:00)
[2020-05-29] MEDS: BENZONATATE 100 MG CAP PO PRN ×2 (09:03→21:00)
--- NOTE | 2020-05-29 10:53 | P.CNS ---
Date of Consult: 05/29/20 Reason for Consult: Pneumonia due to chappell virus Chief Complaint: Shortness of breath History of Present Illness: Patient is 45 years of age came to the hospital with diabetic ketoacidosis with chappell virus pneumonia is hypoxic is currently stable on nasal cannula oxygen diabetic ketoacidosis bicarbonate is still low CRP levels elevated the bilateral ground-glass changes Allergies No Known Allergies Allergy (Verified 05/28/20 01:38) Home Medications: NK [No Home Meds] 05/28/20 - Past Medical/Surgical History Diabetic: Yes -: Insulin dependent diabetes - Family History Father Family History: Reviewed- Non-Contributory - Social History CD- Drugs: No Place of Residence: Home Review of Systems General: Weakness Respiratory: Shortness of Breath Physical Examination Temp Pulse Resp BP Pulse Ox 97.5 F 102 H 31 H 148/84 H 91 05/29/20 07:37 05/29/20 07:37 05/29/20 07:37 05/29/20 07:37 05/29/20 07:37 - Problems (1) Pneumonia due to COVID-19 virus Current Visit: Yes Status: Acute Plan: Patient is 45 years of age admitted with pneumonia due to chappell virus she has bilateral ground-glass changes and use the dose of Solu-Medrol she is managing well on 5 L of nasal cannula oxygen white count is declining cultures are negative re-evaluate tomorrow possible discharge once a day acidosis is corrected on oxygen
[2020-05-29] MEDS: INSULIN GLARGINE 100 UNITS/ML SQ SCH (17:56)
[2020-05-29] MEDS: METHYLPREDNISOLONE 40 MG INJ IV SCH (20:40)
[2020-05-29] MEDS ORDERED: INSULIN GLARGINE 100 UNITS/ML SQ ONE (21:00)
[2020-05-30] MEDS: MELATONIN 5 MG TABLET PO PRN (01:55)
[2020-05-30] MEDS: GUAIFENESIN/CODEINE 5ML UCUP PO PRN (04:37)
--- NOTE | 2020-05-30 05:49 | P.PN ---
Subjective Date of Service: 05/29/20 Subjective: No new changes, No C/O voiced, Tolerating diet, Improving Patient has been more hypoxic. Started Remdesivir. Patient is clinically improved from her diabetic ketoacidosis but her oxygen saturations have not really improved and had actually worsened. Monitor LFTs. Patient is clinically stable. She is happy that her got to go home today. Still requiring more oxygen for support. She was on 2L nasal cannula and now we are on 4-5 L FiO2. Maintaining oxygenation. Physical therapy said he was unable to do as much for them as he was prior. Continue with current plan of care. Review of Systems 10-point ROS is otherwise unremarkable Physical Examination - Vital Signs Temperature: 98.2 F Blood Pressure: 139/79 Pulse: 105 Respirations: 18 Pulse Ox (%): 90 - Physical Exam General: Alert, In no apparent distress, Mild distress, Moderate distress HEENT: Atraumatic, Normocephalic Respiratory: Crackles/rales Cardiovascular: Normal pulses, Regular rate/rhythm, Normal S1 S2 Gastrointestinal: Normal bowel sounds, Soft and benign, Non-distended Musculoskeletal: No clubbing, No swelling Integumentary: No rashes - Studies Microbiology Data (last 24 hrs): 05/27/20 05:20 Clean Catch Urine [place] Count - Final BETWEEN 10,000 & 100,000 CFU/ML 05/27/20 05:20 Clean Catch Urine - Final MIXED RAMBO. Medications List Reviewed: Yes Assessment & Plan - Problems (Diagnosis) (1) Diabetic ketoacidosis Current Visit: Yes Status: Acute (2) Pneumonia due to COVID-19 virus Current Visit: Yes Status: Acute (3) Hypoxemia Current Visit: Yes Status: Acute - Plan 1. Continue with albuterol inhaler therapy; IV steroids; zinc and vitamin-C 2. O2 per protocol 3. Started Remdesivir -monitor LFTs closely; Anion gap appears to be closed. 4. IV hydration - Continue for now. 5. Long-acting insulin 6. Accu-Cheks q4h; strict blood sugar control 7. Monitor electrolytes 8. Diabetic diet Discharge Plan: Home Plan to discharge in: Greater than 2 days - Advance Directives Does patient have a Living Will: No Does patient have a Durable POA for Healthcare: No - Code Status/Comfort Care Code Status: Full Code
[2020-05-30 06:20] LABS: Absolute Lymphocytes (CBC) 0.8 K/uL (0.7-4.9); Basophils % 0.2 % (0-1.3); Lymphocytes % 5.6 % (15.3-44.8); MPV 7.9 fL (7.6-11.3); RBC Red Blood Cell Count 5.05 M/uL (3.86-4.86)
[2020-05-30] MEDS: BENZONATATE 100 MG CAP PO PRN ×2 (06:39→17:54)
[2020-05-30 06:44] LABS: ALT/SGPT 64 U/L (12-78); AST/SGOT 23 U/L (15-37); Albumin 2.6 g/dL (3.4-5.0); Alkaline Phosphatase 162 U/L (45-117); BUN Blood Urea Nitrogen 17 mg/dL (7-18); Bicarbonate 20 mmol/L (21-32); Bilirubin Direct 0.2 mg/dL (0-0.2); Bilirubin Total 0.6 mg/dL (0.2-1.0); Ferritin 410.8 ng/mL (8-388); Glucose Level 331 mg/dL (74-106); Magnesium 2.9 mg/dL (1.8-2.4); Phosphorus 2.3 mg/dL (2.5-4.9); Potassium 3.6 mmol/L (3.5-5.1); Protein, Total 7.3 g/dL (6.4-8.2); Sodium Level 150 mmol/L (136-145)
[2020-05-30 07:33] LABS: Blood Morphology Comment NOT SEEN (NOT SEEN); Platelet Estimate ADEQ; White Blood Cell Scan OK (OK)
[2020-05-30] MEDS ORDERED: POTASSIUM CL SA 10 MEQ TAB PO ONE (08:00)
[2020-05-30] MEDS: INSULIN -REGULAR HUMAN 50 UNIT/0.5 ML ML SQ SCH ×4 (08:47→21:00)
[2020-05-30] MEDS: ENOXAPARIN 40 MG/0.4 ML SQ SCH (08:49)
[2020-05-30] MEDS: CEFTRIAXONE/SWI 1gm 1 GM/10 ML SYR IV SCH (08:49)
[2020-05-30] MEDS: POTASS/SODIUM PHOSPHATE 1 PKT POWD.PACK PO SCH ×3 (08:49→10:00)
[2020-05-30] MEDS: Remdesivir 100 MG in NA CHLORIDE 0.9% 250 ML IV SCH (08:49)
[2020-05-30] MEDS: METHYLPREDNISOLONE 40 MG INJ IV SCH ×2 (08:50→21:09)
[2020-05-30] MEDS: INSULIN 70/30 100 UNITS/ML SQ SCH (08:54)
--- NOTE | 2020-05-30 10:34 | P.PN ---
Subjective Date of Service: 05/30/20 Chief Complaint: Shortness of breath Subjective: No new changes, No C/O voiced Review of Systems 10-point ROS is otherwise unremarkable Physical Examination - Vital Signs Temperature: 97.9 F Blood Pressure: 147/79 Pulse: 107 Respirations: 105 Pulse Ox (%): 95 - Physical Exam General: Alert, In no apparent distress HEENT: Atraumatic, Normocephalic Neck: Supple Respiratory: Diminished, Crackles/rales Cardiovascular: Regular rate/rhythm, Normal S1 S2 Capillary refill: <2 Seconds Gastrointestinal: Soft and benign, Non-distended Musculoskeletal: No clubbing, No swelling Integumentary: No rashes, No breakdown Neurological: Normal speech, Normal strength at 5/5 x4 extr Lymphatics: No axilla or inguinal lymphadenopathy - Studies Microbiology Data (last 24 hrs): 05/27/20 05:20 Clean Catch Urine [place] Count - Final BETWEEN 10,000 & 100,000 CFU/ML 05/27/20 05:20 Clean Catch Urine - Final MIXED RAMBO. Medications List Reviewed: Yes Assessment & Plan - Problems (Diagnosis) (1) Diabetic ketoacidosis Current Visit: Yes Status: Acute (2) Hypoxemia Current Visit: Yes Status: Acute (3) Pneumonia due to COVID-19 virus Current Visit: Yes Status: Acute Physician Review Additional Text: Diabetic ketoacidosis COVID 19 pneumonia Acute hypoxic respiratory failure Hypernatemia Hypophosphatemia Monitor under telemetry On oxygen supplementation at 5 L nasal cannula On IV steroids Patient is on Remdesivir Continue bronchodilators Appreciate help from pulmonology Electrolytes monitored and replaced accordingly Continue insulin sliding scale along with basal insulin Accu-Chek q 4 Will try to wean down oxygen requirement CRP levels trending down but still high Monitor closely Time Spent Managing Pts Care (In Minutes): 42
[2020-05-30] MEDS: INSULIN GLARGINE 100 UNITS/ML SQ SCH (21:10)
[2020-05-31 06:46] LABS: ALT/SGPT 52 U/L (12-78); AST/SGOT 22 U/L (15-37); Albumin 2.5 g/dL (3.4-5.0); Alkaline Phosphatase 148 U/L (45-117); BUN Blood Urea Nitrogen 15 mg/dL (7-18); Bicarbonate 24 mmol/L (21-32); Bilirubin Direct 0.1 mg/dL (0-0.2); Bilirubin Total 0.5 mg/dL (0.2-1.0); Glucose Level 253 mg/dL (74-106); Phosphorus 3.4 mg/dL (2.5-4.9); Potassium 3.6 mmol/L (3.5-5.1); Protein, Total 6.8 g/dL (6.4-8.2); Sodium Level 151 mmol/L (136-145)
[2020-05-31] MEDS: INSULIN -REGULAR HUMAN 50 UNIT/0.5 ML ML SQ SCH ×4 (08:16→20:34)
[2020-05-31] MEDS: ENOXAPARIN 40 MG/0.4 ML SQ SCH (08:17)
[2020-05-31] MEDS: METHYLPREDNISOLONE 40 MG INJ IV SCH ×2 (08:17→20:34)
[2020-05-31] MEDS: INSULIN 70/30 100 UNITS/ML SQ SCH (08:17)
[2020-05-31] MEDS: CEFTRIAXONE/SWI 1gm 1 GM/10 ML SYR IV SCH (08:17)
[2020-05-31] MEDS: Remdesivir 100 MG in NA CHLORIDE 0.9% 250 ML IV SCH (08:46)
--- NOTE | 2020-05-31 09:58 | P.PN ---
Subjective Date of Service: 05/31/20 Chief Complaint: Shortness of breath Subjective: Other (Still having shortness of breath Had been placed on high-flow nasal cannula) Review of Systems 10-point ROS is otherwise unremarkable Physical Examination - Vital Signs Temperature: 98.2 F Blood Pressure: 149/82 Pulse: 89 Respirations: 20 Pulse Ox (%): 94 - Physical Exam General: Alert, Moderate distress HEENT: Atraumatic, Normocephalic Neck: Supple Respiratory: Diminished, Crackles/rales Cardiovascular: Regular rate/rhythm, Normal S1 S2 Capillary refill: <2 Seconds Gastrointestinal: Soft and benign, W/out hepatosplenomegaly Musculoskeletal: No clubbing, No swelling Integumentary: No rashes Neurological: Normal speech, Normal strength at 5/5 x4 extr Lymphatics: No axilla or inguinal lymphadenopathy - Studies Medications List Reviewed: Yes Assessment & Plan - Problems (Diagnosis) (1) Diabetic ketoacidosis Current Visit: Yes Status: Acute (2) Hypoxemia Current Visit: Yes Status: Acute (3) Pneumonia due to COVID-19 virus Current Visit: Yes Status: Acute Physician Review Additional Text: Diabetic ketoacidosis COVID 19 pneumonia Acute hypoxic respiratory failure Hypernatemia Hypophosphatemia Monitor under telemetry On High Flow Nasal Cannula Titrating Oxygen supplementation Continue On IV steroids Patient is on Remdesivir Continue bronchodilators Appreciate help from pulmonology Electrolytes monitored and replaced accordingly Continue insulin sliding scale along with basal insulin Accu-Chek q 4 CRP levels trending down but still high Monitor closely Time Spent Managing Pts Care (In Minutes): 42
[2020-05-31] MEDS ORDERED: POTASSIUM CL SA 10 MEQ TAB PO ONE (10:00)
--- NOTE | 2020-05-31 11:51 | RAD REPORT ---
EXAM DESCRIPTION: RAD - Chest Single View - 05/31/2020 10:50 am CLINICAL HISTORY: Cough Chest pain. COMPARISON: Chest Single View dated 05/27/2020; ABDOMEN ACUTE SERIES dated 01/24/2008; Chest For Pe A ngio dated 05/27/2020 FINDINGS: Portable technique limits examination quality. [id number] bilateral interstitial lung opacities suspicious for viral bronchitis/ viral pneumon itis. The heart is normal in size. No displaced fractures.
[2020-05-31] MEDS: INSULIN GLARGINE 100 UNITS/ML SQ SCH (20:33)
[2020-05-31] MEDS: BENZONATATE 100 MG CAP PO PRN (20:34)
[2020-05-31] MEDS: MELATONIN 5 MG TABLET PO PRN (23:58)
[2020-06-01 04:11] LABS: Albumin 2.7 g/dL (3.4-5.0); Bilirubin Direct 0.1 mg/dL (0-0.2); Bilirubin Total 0.5 mg/dL (0.2-1.0); Potassium 4.2 mmol/L (3.5-5.1); Protein, Total 7.2 g/dL (6.4-8.2)
[2020-06-01] MEDS: INSULIN -REGULAR HUMAN 50 UNIT/0.5 ML ML SQ SCH ×4 (08:17→20:14)
[2020-06-01] MEDS: INSULIN 70/30 100 UNITS/ML SQ SCH (08:17)
[2020-06-01] MEDS: CEFTRIAXONE/SWI 1gm 1 GM/10 ML SYR IV SCH (08:17)
[2020-06-01] MEDS: ENOXAPARIN 40 MG/0.4 ML SQ SCH (08:18)
[2020-06-01] MEDS: METHYLPREDNISOLONE 40 MG INJ IV SCH ×2 (08:18→20:13)
[2020-06-01] MEDS ORDERED: ASPIRIN EC 81 MG TAB PO SCH (09:00)
[2020-06-01] MEDS ORDERED: SITAGLIPTIN PHOS 100 MG TAB PO SCH (09:00)
[2020-06-01] MEDS: Remdesivir 100 MG in NA CHLORIDE 0.9% 250 ML IV SCH (09:46)
--- NOTE | 2020-06-01 12:22 | P.PN ---
Subjective Date of Service: 06/01/20 Chief Complaint: Caballero virus pneumonia Subjective: Improving (Patient is improving still requiring high concentrations of oxygen DKA resolved evidence of sepsis) Review of Systems General: Weakness Physical Examination - Vital Signs Temperature: 97.9 F Blood Pressure: 132/66 Pulse: 93 Respirations: 16 Pulse Ox (%): 90 - Physical Exam General: Alert, Oriented x3 Respiratory: Normal air movement Cardiovascular: No edema, Normal S1 S2 - Studies Microbiology Data (last 24 hrs): 05/27/20 04:45 Blood - Blood Aerobic Blood Culture - Final No growth in 5 days. 05/27/20 04:45 Blood - Blood Anaerobic Blood Culture - Final No growth in 5 days. 05/27/20 05:00 Blood - Blood Aerobic Blood Culture - Final No growth in 5 days. 05/27/20 05:00 Blood - Blood Anaerobic Blood Culture - Final No growth in 5 days. Medications List Reviewed: Yes Assessment & Plan - Problems (Diagnosis) (1) Pneumonia due to COVID-19 virus Current Visit: Yes Status: Acute Plan: Patient admitted with coronal virus pneumonia and diabetic ketoacidosis she is improving still requiring high concentrations of oxygen 90% on 5 L will plan to evaluate her on nasal cannula oxygen also hypernatremic recommend increase fluid intake patient is on steroids daily serum ferritin and CRP level blood sugars still elevated patient did not tolerate nasal cannula oxygen she is back on high-flow
[2020-06-01] MEDS: VITAMIN D 1000 UNIT TAB PO SCH (12:48)
[2020-06-01] MEDS: ASPIRIN EC 81 MG TAB PO SCH (12:49)
[2020-06-01] MEDS: THIAMINE HCL 100 MG TABLET PO SCH (12:49)
[2020-06-01] MEDS: SITAGLIPTIN PHOS 100 MG TAB PO SCH (12:49)
--- NOTE | 2020-06-01 17:20 | P.PN ---
Subjective Date of Service: 06/01/20 Chief Complaint: Caballero virus pneumonia Subjective: Improving (Slowly improving. Still on high-flow oxygen.) Physical Examination - Vital Signs Temperature: 97.6 F Blood Pressure: 121/67 Pulse: 81 Respirations: 18 Pulse Ox (%): 93 - Physical Exam General: Alert, In no apparent distress, Cooperative HEENT: Atraumatic Neck: Supple Respiratory: Other (Still requiring high-flow oxygen) Cardiovascular: Normal pulses, Regular rate/rhythm Neurological: Normal speech, Normal strength at 5/5 x4 extr, Normal tone, Normal affect - Studies Microbiology Data (last 24 hrs): 05/27/20 04:45 Blood - Blood Aerobic Blood Culture - Final No growth in 5 days. 05/27/20 04:45 Blood - Blood Anaerobic Blood Culture - Final No growth in 5 days. 05/27/20 05:00 Blood - Blood Aerobic Blood Culture - Final No growth in 5 days. 05/27/20 05:00 Blood - Blood Anaerobic Blood Culture - Final No growth in 5 days. Medications List Reviewed: Yes Assessment & Plan Discharge Plan: Home Plan to discharge in: Greater than 2 days Physician Review Additional Text: Impression: Diabetic ketoacidosis with diabetes mellitus type 2 COVID 19 pneumonia Acute hypoxic respiratory failure Hypernatemia Hypophosphatemia Plan: Diabetic ketoacidosis resolved. Continue with IV steroids and remdesivir. Continue monitor closely. Case discussed with pulmonology. Monitor CRP and ferritin. Patient on DVT/PE prevention. Continue supplementation. Continue basal insulin and sliding scale. Encourage oral intake. Will continue monitor closely. Wean off high-flow oxygen. Will reassess tomorrow. Time Spent Managing Pts Care (In Minutes): 55
[2020-06-01] MEDS: MELATONIN 3 MG TABLET PO SCH (20:13)
[2020-06-01] MEDS: ATORVASTATIN 20 MG TAB PO SCH (20:13)
[2020-06-01] MEDS: INSULIN GLARGINE 100 UNITS/ML SQ SCH (20:14)
[2020-06-01] MEDS: APIXABAN 5 MG TABLET PO SCH (20:14)
[2020-06-01] MEDS: BENZONATATE 100 MG CAP PO PRN (20:19)
[2020-06-02 04:08] LABS: C-Reactive Protein 18.7 mg/L (<3.00); Ferritin 244.8 ng/mL (8-388)
[2020-06-02] MEDS: INSULIN 70/30 100 UNITS/ML SQ SCH (08:00)
[2020-06-02] MEDS: THIAMINE HCL 100 MG TABLET PO SCH (09:00)
[2020-06-02] MEDS: SITAGLIPTIN PHOS 100 MG TAB PO SCH (09:35)
[2020-06-02] MEDS: METHYLPREDNISOLONE 40 MG INJ IV SCH ×2 (09:35→20:45)
[2020-06-02] MEDS: ASPIRIN EC 81 MG TAB PO SCH (09:35)
[2020-06-02] MEDS: VITAMIN D 1000 UNIT TAB PO SCH (09:36)
[2020-06-02] MEDS: APIXABAN 5 MG TABLET PO SCH ×2 (09:36→20:45)
[2020-06-02] MEDS: INSULIN -REGULAR HUMAN 50 UNIT/0.5 ML ML SQ SCH ×4 (09:36→20:46)
--- NOTE | 2020-06-02 17:28 | P.PN ---
Subjective Date of Service: 06/02/20 Chief Complaint: Caballero virus pneumonia Subjective: Improving Physical Examination - Vital Signs Temperature: 97.5 F Blood Pressure: 119/69 Pulse: 79 Respirations: 19 Pulse Ox (%): 93 - Physical Exam General: Alert HEENT: Atraumatic Neck: Supple Respiratory: Other (Patient on high-flow oxygen) Cardiovascular: Normal pulses Neurological: Normal speech, Normal strength at 5/5 x4 extr, Normal tone, Normal affect - Studies Medications List Reviewed: Yes Assessment & Plan Discharge Plan: Home Plan to discharge in: 48 Hours Physician Review Additional Text: Impression: Diabetic ketoacidosis with diabetes mellitus type 2 COVID 19 pneumonia Acute hypoxic respiratory failure Hypernatemia Hypophosphatemia Plan: Diabetic ketoacidosis resolved. Continue with IV steroids and remdesivir. Continue monitor closely. Case discussed with pulmonology. Will try to wean off high-flow oxygen. Recommend proning. Respiratory to further adjust oxygen requirement. Monitor CRP and ferritin. Patient on DVT/PE prevention. Continue supplementation. Continue basal insulin and sliding scale. Encourage oral intake. Will continue monitor closely. Wean off high-flow oxygen. Will reassess tomorrow. Hopefully improvement in the next 48 hr. Time Spent Managing Pts Care (In Minutes): 55
[2020-06-02] MEDS: MELATONIN 3 MG TABLET PO SCH (20:45)
[2020-06-02] MEDS: ATORVASTATIN 20 MG TAB PO SCH (20:45)
[2020-06-02] MEDS: INSULIN GLARGINE 100 UNITS/ML SQ SCH (20:47)
[2020-06-03] MEDS: ACETAMINOPHEN 325 MG TABLET PO PRN ×2 (03:24→19:43)
[2020-06-03 03:59] LABS: C-Reactive Protein 12.2 mg/L (<3.00); Ferritin 229.7 ng/mL (8-388)
[2020-06-03] MEDS: THIAMINE HCL 100 MG TABLET PO SCH (07:49)
[2020-06-03] MEDS: METHYLPREDNISOLONE 40 MG INJ IV SCH (07:49)
[2020-06-03] MEDS: VITAMIN D 1000 UNIT TAB PO SCH (07:49)
[2020-06-03] MEDS: SITAGLIPTIN PHOS 100 MG TAB PO SCH (07:50)
[2020-06-03] MEDS: ASPIRIN EC 81 MG TAB PO SCH (07:50)
[2020-06-03] MEDS: APIXABAN 5 MG TABLET PO SCH ×2 (07:50→19:43)
[2020-06-03] MEDS: INSULIN 70/30 100 UNITS/ML SQ SCH (08:28)
[2020-06-03] MEDS: INSULIN -REGULAR HUMAN 50 UNIT/0.5 ML ML SQ SCH ×4 (08:29→20:51)
--- NOTE | 2020-06-03 14:40 | P.PN ---
Subjective Date of Service: 06/03/20 Chief Complaint: Caballero virus pneumonia Subjective: Doing well (Patient improving. On 6 L per nasal cannula.) Physical Examination - Vital Signs Temperature: 97.5 F Blood Pressure: 116/61 Pulse: 87 Respirations: 18 Pulse Ox (%): 95 - Physical Exam General: Alert, Cooperative HEENT: Atraumatic Neck: Supple Respiratory: Other (Patient without distress. Patient on 6 L) Cardiovascular: Normal pulses Neurological: Normal speech, Normal strength at 5/5 x4 extr, Normal tone, Normal affect - Studies Medications List Reviewed: Yes Assessment & Plan Discharge Plan: Home Plan to discharge in: 24 Hours Physician Review Additional Text: Impression: Diabetic ketoacidosis with diabetes mellitus type 2 COVID 19 pneumonia Acute hypoxic respiratory failure Hypernatemia Hypophosphatemia Plan: Diabetic ketoacidosis resolved. Patient continues to improve. Patient currently on 6 L per nasal cannula. Continue with current IV steroids. C ontinue protein. Wean down oxygen. Continue to adjust Lantus for better diabetic control. A1c above 10. If oxygen can be weaned down below 4 L then we can consider discharging patient. Case discussed in detail with pulmonology who agrees with plan of care. Likely home in the next 24 hr. Time Spent Managing Pts Care (In Minutes): 55
--- NOTE | 2020-06-03 15:09 | P.PN ---
Subjective Date of Service: 06/03/20 Chief Complaint: Caballero virus pneumonia Subjective: Improving (Patient is doing much better now on nasal cannula oxygen still feeling weak) Review of Systems General: Weakness Respiratory: Shortness of Breath Physical Examination - Vital Signs Temperature: 97.5 F Blood Pressure: 116/61 Pulse: 87 Respirations: 18 Pulse Ox (%): 95 - Studies Medications List Reviewed: Yes Assessment & Plan - Problems (Diagnosis) (1) Pneumonia due to COVID-19 virus Current Visit: Yes Status: Acute Plan: Pneumonia due to caballero virus patient is improving non nasal cannula oxygen ferritin and CRP levels are declining an to discharge home on home O2 I have ordered repeat labs to check her sodium shukla is been hypernatremic CRP and ferritin levels have decline vital signs stable patient will need insulin setup was admitted with diabetic ketoacidosis
[2020-06-03] MEDS: ATORVASTATIN 20 MG TAB PO SCH (19:43)
[2020-06-03] MEDS: MELATONIN 3 MG TABLET PO SCH (19:43)
[2020-06-03] MEDS: predniSONE 20 MG TAB PO SCH (19:44)
[2020-06-03] MEDS ORDERED: INSULIN GLARGINE 100 UNITS/ML SQ SCH (21:00)
[2020-06-04] MEDS: VITAMIN D 1000 UNIT TAB PO SCH (07:53)
[2020-06-04] MEDS: THIAMINE HCL 100 MG TABLET PO SCH (07:53)
[2020-06-04] MEDS: predniSONE 20 MG TAB PO SCH (07:56)
[2020-06-04] MEDS: APIXABAN 5 MG TABLET PO SCH (07:56)
[2020-06-04] MEDS: SITAGLIPTIN PHOS 100 MG TAB PO SCH (07:56)
[2020-06-04] MEDS: INSULIN -REGULAR HUMAN 50 UNIT/0.5 ML ML SQ SCH ×2 (07:56→11:36)
[2020-06-04] MEDS: ASPIRIN EC 81 MG TAB PO SCH (07:56)
--- NOTE | 2020-06-04 08:05 | P.PN ---
Subjective Date of Service: 06/04/20 Primary Care Provider: Dr. Kwong Chief Complaint: Caballero virus pneumonia Subjective: Improving, Doing well Physical Examination - Vital Signs Temperature: 97.2 F Blood Pressure: 115/72 Pulse: 96 Respirations: 18 Pulse Ox (%): 93 - Physical Exam General: Alert, In no apparent distress Neck: Supple Respiratory: Other (Patient on 2-1/2 L no distress noted) Cardiovascular: Normal pulses Neurological: Normal speech, Normal strength at 5/5 x4 extr, Normal tone, Normal affect - Studies Medications List Reviewed: Yes Assessment & Plan Discharge Plan: Home Plan to discharge in: 24 Hours Physician Review Additional Text: Impression: Diabetic ketoacidosis with diabetes mellitus type 2 COVID 19 pneumonia with Acute hypoxic respiratory failure Hypernatemia Hypophosphatemia Plan: Diabetic ketoacidosis with diabetes mellitus type 2: DKA resolved. Blood sugars better controlled. Continue to adjust basal insulin. Increase Lantus to 65 units for better diabetic control. A1c 11.9. Patient will need a continue with Lantus at discharge for better diabetic control. COVID 19 pneumonia with acute hypoxic respiratory failure: CRP significantly improved. Patient currently on 2-1/2 L per nasal cannula. Will physical therapy ambulate. If doing well with ambulation will consider discharge later today. Will reassess later to determine this. Patient will require vitamin supplementation, Eliquis and steroid at discharge. Hypernatemia: Resolved Hypophosphatemia: Resolved Diabetic ketoacidosis resolved. Patient continues to improve. Patient currently on 6 L per nasal cannula. Continue with current IV steroids. Continue protein. Wean down oxygen. Continue to adjust Lantus for better diabetic control. A1c above 10. If oxygen can be weaned down below 4 L then we can consider discharging patient. Case discussed in detail with pulmonology who agrees with plan of care. Likely home in the next 24 hr. Time Spent Managing Pts Care (In Minutes): 55
[2020-06-04 11:49] VITALS: O2SAT 92
[2020-06-04 12:26] VITALS: BP 123/82; TEMP 97.7
--- NOTE | 2020-06-04 14:14 | P.DS ---
Admission Date: 05/27/20 Discharge Date: 06/04/20 Primary Care Provider: none Disposition: ROUTINE DISCHARGE Discharge Condition: GOOD Reason for Admission: Caballero virus pneumonia Consultations: Pulmonary-Dr. Maria Procedures: Medical problem list: Diabetic ketoacidosis-resolved with diabetes mellitus type 2 COVID 19 pneumonia with Acute hypoxic respiratory failure Hypernatemia Hypophosphatemia Brief History of Present Illness: 45-year-old female came to the hospital with poorly-controlled blood s ugars. She has not been feeling well and she was recently found to have COVID- 19 pneumonia. Her clinical symptoms have been declining so she came into the emergency room for further evaluation. In the emergency room she was found have elevated blood sugars and she was acidotic. Her oxygen saturations were stable. She was admitted for treatment of her diabetic ketoacidosis and COVID. Hospital Course: Recommend follow up with PCP in 1 week to follow up this hospitalization. Patient presented with shortness of breath. Patient found to have COVID 19 pneumonia with diabetic ketoacidosis. Patient with underlying diabetes mellitus type 2 rolled. DKA was treated and resolved. This was further complicated with acute respiratory failure secondary to bilateral COVID 19 pneumonia. As for her diabetes, hemoglobin A1c 11.9. Patient was placed on basal insulin with medication. Blood sugars now better controlled. At discharge she will continue to monitor her blood sugars at least twice daily. At discharge she will continue with Lantus 70 units daily and Januvia 100 mg daily. Recommend to maintain blood sugar less than 140 fasting and less than 200 after meals. If blood sugars remain above 200 consistently then she can increase Lantus by 1 or 2 units daily. Recommend follow up with her PCP to further monitor and address. Strict diabetic control will be required. Education on insulin and diabetes will be provided. As mentioned above patient also had acute respiratory failure with hypoxia secondary to COVID 19 pneumonia. Patient has done well during the course of her stay. At discharge patient still requires oxygen. Home oxygen has been arranged. She will continue with oxygen to maintain sats above 93%. At [facility] patient currently on 2.5 L per nasal cannula. At discharge patient will continue with prednisone 20 mg 1 pill twice daily for 7 days then 1 pill daily for 7 days. Other medication will include Eliquis 5 mg 1 pill twice daily for prevention of PE and DVT. Vitamin supplementation includes vitamin-C 500 mg 3 times a day, thiamine 100 mg daily, and vitamin-D 1000 units daily. Recommend follow up with pulmonology within 1 week to further monitor and address her care. Education on CDC guidelines for isolation, hand washing, face mask use, and social distancing will be provided. Vital Signs/Physical Exam: Temp Pulse Resp BP Pulse Ox 97.7 F 114 H 24 H 123/82 92 06/04/20 12:00 06/04/20 12:00 06/04/20 12:00 06/04/20 12:00 06/04/20 12:00 General: Alert, In no apparent distress, Oriented x3, Cooperative HEENT: Atraumatic, Normocephalic Neck: Supple Respiratory: Other (Patient breathing appropriately. No distress noted. Patient on 2.5 L) Cardiovascular: Normal pulses, Regular rate/rhythm Gastrointestinal: Normal bowel sounds, Soft and benign, Non-distended Neurological: Normal speech, Normal strength at 5/5 x4 extr, Normal tone, Normal affect Laboratory Data at Discharge: WBC 14.8 K/uL (4.3-10.9) H 05/30/20 05:36 Hgb 14.3 g/dL (12.0-15.0) 05/30/20 05:36 Hct 43.0 % (36.0-45.0) 05/30/20 05:36 Plt Count 339 K/uL (152-406) D 05/30/20 05:36 PT 11.8 SECONDS (9.5-12.5) 05/27/20 04:45 INR 1.00 05/27/20 04:45 APTT 23.1 SECONDS (24.3-36.9) L 05/27/20 04:45 Sodium 140 mmol/L (136-145) 06/03/20 15:58 Potassium 4.0 mmol/L (3.5-5.1) 06/03/20 15:58 BUN 13 mg/dL (7-18) 06/03/20 15:58 Creatinine 0.77 mg/dL (0.55-1.3) 06/03/20 15:58 Glucose 319 mg/dL (74-106) H 06/03/20 15:58 Phosphorus 3.4 mg/dL (2.5-4.9) 05/31/20 05:31 Magnesium 2.9 mg/dL (1.8-2.4) H 05/30/20 05:36 Total Bilirubin 0.5 mg/dL (0.2-1.0) 06/01/20 03:06 AST 19 U/L (15-37) 06/01/20 03:06 ALT 44 U/L (12-78) 06/01/20 03:06 Alkaline Phosphatase 136 U/L (45-117) H 06/01/20 03:06 Triglycerides 229 mg/dL (<150) H 05/28/20 02:55 Cholesterol 148 mg/dL (<200) 05/28/20 02:55 HDL Cholesterol 28 mg/dL (40-60) L 05/28/20 02:55 Cholesterol/HDL Ratio 5.29 05/28/20 02:55 Amylase 38 U/L (25-115) 05/27/20 04:45 Lipase 125 U/L (73-393) 05/27/20 04:45 Home Medications: Apixaban [Eliquis] 5 mg PO BID #60 tablet 06/04/20 Ascorbate Calcium [Vitamin C] 500 mg PO TID #90 tablet 06/04/20 Benzonatate [Tessalon Perle*] 100 mg PO TID PRN #15 cap 06/04/20 Cholecalciferol (Vitamin D3) [Vitamin D 1000 Iu Tab*] 2,000 unit PO DAILY #60 tab 06/04/20 Insulin Glargine Human [Lantus*] 65 units SQ BEDTIME #1 vial 06/04/20 Sitagliptin Phosphate [Januvia*] 100 mg PO DAILY #30 tab 06/04/20 Thiamine HCl [Vitamin B-1*] 100 mg PO DAILY #30 tablet 06/04/20 predniSONE [Prednisone*] 20 mg PO SEECOM #21 tab 06/04/20 New Medications: Apixaban [Eliquis] 5 mg PO BID #60 tablet Sitagliptin Phosphate [Januvia*] 100 mg PO DAILY #30 tab Insulin Glargine Human [Lantus*] 65 units SQ BEDTIME #1 vial predniSONE [Prednisone*] 20 mg PO SEECOM #21 tab Benzonatate [Tessalon Perle*] 100 mg PO TID PRN #15 cap PRN Reason: Cough Thiamine HCl [Vitamin B-1*] 100 mg PO DAILY #30 tablet Ascorbate Calcium [Vitamin C] 500 mg PO TID #90 tablet Cholecalciferol (Vitamin D3) [Vitamin D 1000 Iu Tab*] 2,000 unit PO DAILY #60 tab Patient Discharge Instructions: Recommend follow up with PCP in 1 week to follow up this hospitalization. Patient presented with diabetic ketoacidosis. Patient with underlying diabetes mellitus type 2. DKA was treated and resolved. This was further complicated with acute respiratory failure secondary to bilateral COVID 19 pneumonia. As for her diabetes, hemoglobin A1c 11.9. Patient was placed on basal insulin with medication. Blood sugars now better controlled. At discharge she will continue to monitor her blood sugars at least twice daily. At discharge she will continue with Lantus 70 units daily and Januvia 100 mg daily. Recommend to maintain blood sugar less than 140 fasting and less than 200 after meals. If blood sugars remain above 200 consistently then she can increase Lantus by 1 or 2 units daily. Recommend follow up with her PCP to further monitor and address. Strict diabetic control will be required. Education on insulin and diabetes will be provided. As mentioned above patient also had acute respiratory failure with hypoxia secondary to COVID 19 pneumonia. Patient has done well during the course of her stay. At discharge patient still requires oxygen. Home oxygen has been arranged. She will continue with oxygen to maintain sats above 93%. At discharge patient will continue with prednisone 20 mg 1 pill twice daily for 7 days then 1 pill daily for 7 days. Other medication will include Eliquis 5 mg 1 pill twice daily for prevention of PE and DVT. Vitamin supplementation includes vitamin-C 500 mg 3 times a day, thiamine 100 mg daily, and vitamin-D 1000 units daily. Recommend follow up with pulmonology within 1 week to further monitor and address her care. Education on CDC guidelines for isolation, hand washing, face mask use, and social distancing will be provided. Diet: ADA Activity: Ad regi Followup: NONE,NONE [Primary Care Provider] - Time spent managing pt's care (in minutes): 55
[2020-06-04] MEDS ORDERED: INSULIN GLARGINE 100 UNITS/ML SQ SCH (21:00)
== END 2020-06-04 15:45 | disposition home or self-care (01) | DRG 177 ==
LOC: ER 04:16 → ERHOLD 08:02 → 3RD-ICU 17:39 → 4TH 05-29 23:50
PROVIDERS: ADMIT Hospitalist; ATTEND Family Medicine
PROC: XW033E5 Introduction of Remdesivir Anti-infective into Peripheral Vein, Percutaneous Approach, New Technology Group 5 (ICD-10-PCS; principal; 2020-05-28)
DX: U07.1 COVID-19 (principal); J12.89 Other viral pneumonia; J96.01 Acute respiratory failure with hypoxia; E11.10 Type 2 diabetes mellitus with ketoacidosis without coma; E87.0 Hyperosmolality and hypernatremia; E83.39 Other disorders of phosphorus metabolism; Z79.4 Long term (current) use of insulin; Z79.01 Long term (current) use of anticoagulants; Z79.52 Long term (current) use of systemic steroids; Z79.899 Other long term (current) drug therapy
CPT/HCPCS: 36415; 71045; 71275; 80048; 80061; 80076; 81003; 81015; 81025; 82010; 82150; 82310; 82550; 82553; 82728; 82805; 82947; 83036; 83605; 83690; 83735; 83880; 84100; 84132; 84145; 84484; 85025; 85379; 85610; 85730; 86140; 87040; 87086; 87088; 93005; 94002; 94003; 94760; 97112; 97116; 97161; 99285; J0456; J0696; J1650; J1815; J1940; J2405; J2920; J2930; J3010; J3475; J3480; J7030; J7040; J7050; J7512; J7799; Q9967; U0003

== ENCOUNTER 2023-10-02 10:11 | Inpatient (IN) | payer OTHER ==
--- OUTSIDE RECORDS SUMMARY | 2023-10-02 16:14 | XMS REPORT | Continuity of Care Document ---
Author Name Unknown Address [address] [facility] [address] [facility] [address] [place] [address] Organization [facility] thconnect Address [address] [place] [address] Care Team Providers Care Neurophysiologist Name Role Phone PCP, PATIENT DOES NOT HAVE A Primary Care Physic gamaliel Unavailable Guy Smiley Attending Clinician Leland Alvarez MD, [facility] K[facility]. Attending Clinician [phone] Christelle Mehta Attending Clinician [phone] Todd Ley MD Attending Clinician [phone] TODD LEY Attending Clinician Unavailable Guy Smiley Admitting Clinician Fletcher Dodd Admitting Clinician Unavailable Todd Ley MD Admitting Clinician [phone] TODD LEY Admitting Clinician Unavailable Payers Payer Name Policy Type Policy Number Effective Date Expirati on Date Source Allergies, Adverse Reactions, Alerts Allergy Name Allergy Type Status Severity Reaction(s) Onset Date Inactive Date Treating Clinician Comments Source NO KNOWN ALLERGIE S Drug Class Active [facility] Encounters Start Date/Time End Date/Time Encounter Type Admission Type Attending Clinicians Care Facility Care Department Encounter ID Source 2021-05-03 09:30:00 2021 09:15:00 Inpatient Guy Levy [facility] NUC [id number] 76 [facility] 2021-01-25 11:07:00 2021-01-25 11:07:00 Outpatient Guy Levy [facility] OUTD [id number] 04 [facility] 2019-11-19 00:00:00 2019-11-19 00:00:00 Telephone Carola Alvarez [facility] [id number] 2019-11-13 15:26:52 2019-11-15 10:25:00 Emergency Franco Christelle MontemayorTodd fish [facility] [id number] 2019-11-13 15:26:52 2019-11-15 10:25:00 Outpatient HELEN UND[facility] [id number] [facility] Notes Date/Time Note Provider Source 2021-01-26 13:16:00 [id number] [address] PATIENT NAME: LUIZ GREGG ADMIT DATE: 01/25/21ACCOUNT NO: [id number] ROOM NO: AGE: 45 REPORT TYPE: ECHOCARDIOGRAM SEX: F ADMITTING PHYSICIAN: ATTENDING PHYSICIAN:Guy Smiley MD *[facility]*[address] [place] [id number] Transthoracic Echocardiogram Patient: Alis Gregg Date: 01/25/2021 BP: [id number] 1975 Age: 45 Height: 60 in / 152.4 cmAccession#: [id number] Gender: F Weight: 174.6 lb / 79.4 kgBMI/BSA: 34.2 kg/m 2 / 1.87 m 2 *Ordering Physician: * Guy Smiley MD *Interpreting Physician: * Guy Smiley MD*Manufacturer'S Service Representative: * Emilee Costello RVT Indications: Dyspnea. Study data: Transthoracic echocardiogram. Procedure: Transthoracicechocardiography was performed. Images were obtained using a [employer] cardiacultrasound machine. Image quality was poor. M-mode, complete 2D,complete spectral Doppler, and color Doppler. Location: Echolaboratory. Patient status: Inpatient. Patient room number: CH10.Study status: Routine. Rhythm: Normal sinus rhythm. Findings Left ventricle: The cavity size is normal. Wall thickness is normal.Systolic function is normal. The estimated ejection fraction is 60-64%.Wall motion is normal; there are no regional wall motion abnormalities.Doppler parameters are consistent with abnormal left ventricularrelaxation (grade 1 diastolic dysfunction). PATIENT NAME: LUIZ GREGG Right ventricle: The cavity size is normal. Systolic function isnormal.Left atrium: The atrium is normal in size.Right atrium: The atrium is normal in size.Aorta: Aortic root: The aortic root is normal in size.Aortic valve: The valve is trileaflet. The leaflets are mildlythickened. Cusp separation is normal. Transvalvular velocity is withinthe normal range. There is no evidence of stenosis. There is noregurgitation.Mitral valve: The leaflets are mildly thickened. There is trivialregurgitation.Tricuspid valve: Not well visualized. There is no regurgitation.Pulmonic valve: Not well visualized.Pericardium: There is no pericardial effusion. No evidence of pleuralfluid accumulation.Systemic veins:Inferior vena cava: The vessel is normal in size. Measurements Left ventricle Value Ref SONIA, LAX 4.6 cm 3.8 - 5.2 ESD, LAX 3.1 cm 2.2 - 3.5 ESD/bsa, LAX 1.7 cm/m 2 1.3 - 2.1 FS, LAX 33 % 27 - 45 PW, ED 0.8 cm 0.6 - 0.9 PW, ES 1.1 cm --------- IVS/PW, ED 1.2 --------- EF 61 % 54 - 74 IVRT 118 ms --------- E', lat edouard, TDI 8.0 cm/sec >=10.0 E/e', lat edouard, 9 --------- TDI E', med edouard, TDI 8.0 cm/sec >=7.0 E/e', med edouard, 9 --------- TDI E', avg, TDI 8.0 cm/sec --------- E/e', avg, TDI 9 <=14 LVOT Value Ref Diam, S 1.98 cm --------- Area 3.1 cm 2 --------- Peak otilio, S 1.08 m/sec --------- Mean otilio, S 0.68 m/sec --------- VTI, S 19.3 cm --------- Peak grad, S 5 mm Hg --------- Mean grad, S 2 mm Hg --------- SV 59 ml --------- Qs 4.88 L/min --------- Qs/bsa 2.6 L/(min-m 2) --------- SV/bsa 32 ml/m 2 --------- Ventricular septum Value Ref PATIENT NAME: LUIZ GREGG IVS, ED 0.9 cm 0.6 - 0.9 IVS, ES 1.2 cm --------- Right ventricle Value Ref SONIA, LAX 2.0 cm --------- Pressure, S 21 mm Hg --------- S' lateral 17.0 cm/sec 6.0 - 13.4 RVOT Value Ref Peak v, S 0.76 m/sec --------- Peak grad, S 2 mm Hg --------- Left atrium Value Ref AP dim, ES 2.90 cm 2.70 - 3.80 Area ES, A4C 15 cm 2 <=20 AP dim, ES MM 3.2 cm 2.7 - 3.8 LA/Ao root 1.15 --------- ratio, MM Right atrium Value Ref Area, ES, A4C 13 cm 2 10 - 18 Aortic valve Value Ref Leaflet sep, MM 1.72 cm --------- Peak v, S 1.44 m/sec --------- Mean v, S 1 m/sec --------- VTI, S 25.5 cm --------- Mean grad, S 4.5 mm Hg --------- Peak grad, S 8.2 mm Hg --------- LVOT/AV, VTI 0.76 --------- ratio JANENE, VTI 2.32 cm 2 --------- LVOT/AV, Vpeak 0.75 --------- ratio JANENE, Vmax 2.30 cm 2 --------- Mitral valve Value Ref Peak E 0.71 m/sec --------- Peak A 0.95 m/sec --------- Mean v, D 0.66 m/sec --------- VTI leaflet 19.6 cm --------- coapt Decel time 151 ms --------- PHT 47 ms --------- Mean grad, D 1.8 mm Hg --------- Peak grad, D 3.6 mm Hg --------- Peak E/A ratio 0.75 --------- MVA, PHT 4.7 cm 2 --------- Pulmonic valve Value Ref WI v, ED 0.83 m/sec --------- PATIENT NAME: LUIZ GREGG Tricuspid valve Value Ref TR peak v 2.01 m/sec <=2.8 Peak RV-RA grad, 16 mm Hg --------- S Aortic root Value Ref Root diam 2.3 cm <4.0 Root diam, ED MM 2.79 cm --------- Pulmonary artery Value Ref Pressure, S 17.8 mm Hg --------- Systemic veins Value Ref Estimated CVP 5 mm Hg --------- Conclusions Summary: 1. Left ventricle: The cavity size is normal. Wall thickness is normal. Systolic function is normal. The estimated ejection fraction is 60-64%. Wall motion is normal; there are no regional wall motion abnormalities. Doppler parameters are consistent with abnormal left ventricular relaxation (grade 1 diastolic dysfunction).2. Right ventricle: The RV pressure during systole by Doppler is 21 mm Hg. Prepared and electronically signed by Guy Smiley MD01/26/2021 13:15 at 1316 PATIENT NAME: LUIZ GREGG :16:0 [id number] for patient [id number] [facility]
[2023-10-02 17:21] VITALS: BMI 32.2
[2023-10-02] MEDS ORDERED: HYDRALAZINE HCL 20 MG/ML VIAL IV PRN (17:26)
[2023-10-02] MEDS ORDERED: GLUCAGON 1 MG/VIAL IM PRN (17:28)
[2023-10-02] MEDS ORDERED: D10W 250 ML BAG IV PRN (17:28)
--- NOTE | 2023-10-02 17:43 | P.HP ---
Certification for Inpatient Patient admitted to: Inpatient With expected LOS: >2 Midnights Patient will require the following post-hospital care: None Practitioner: I am a practitioner with admitting privileges, knowledge of patient current condition, hospital course, and medical plan of care. Services: Services provided to patient in accordance with Admission requirements found in Title 42 Section 412.3 of the Code of Federal Regulations Patient History Date of Service: 10/02/23 Primary Care Provider: Reid Reason for admission: unstable angina History of Present Illness: 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 she has been having chest pain on and off for the last year. She has a history of atrial fib, dm2, htn. She has been having worsening pain. The patient came to my office last monday. 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 She had several boughts of chest pain over the weekend. Was woken up by this on SAT. She had pulse of 124 and blood sugar of 325 at that time. The patient has never had a sleep study. She has an epworth of 4, stop bang of 4. So high risk of sleep apnea. The patient 's is here. has not reported and apnea spells. Allergies No Known Allergies Allergy (Verified 05/28/20 01:38) Home Medications: Apixaban [Eliquis] 5 mg PO BID #60 tablet 06/04/20 Ascorbate Calcium [Vitamin C] 500 mg PO TID #90 tablet 06/04/20 Benzonatate [Tessalon Perle*] 100 mg PO TID PRN #15 cap 06/04/20 Cholecalciferol (Vitamin D3) [Vitamin D 1000 Iu Tab*] 2,000 unit PO DAILY #60 tab 06/04/20 Insulin Glargine Human [Lantus*] 65 units SQ BEDTIME #1 vial 06/04/20 Sitagliptin Phosphate [Januvia*] 100 mg PO DAILY #30 tab 06/04/20 Thiamine HCl [Vitamin B-1*] 100 mg PO DAILY #30 tablet 06/04/20 predniSONE [Prednisone*] 20 mg PO SEECOM #21 tab 06/04/20 - Past Medical/Surgical History Has patient received pneumonia vaccine in the past: No Diabetic: Yes -: IDDM -: HLD -: HTN -: X3 C- Section -: Choleysystectomy - Family History Mother -: Heart disease, Hypertension - Social History Smoking Status: Never smoker Alcohol use: No CD- Drugs: No Caffeine use: No Place of Residence: Home Review of Systems 10-point ROS is otherwise unremarkable Cardiovascular: Chest Pain Physical Examination - Vital Signs Temperature: 98.4 F Blood Pressure: 135/88 Pulse: 84 Respirations: 16 Pulse Ox (%): 100 - Physical Exam General: Alert, In no apparent distress HEENT: Atraumatic, PERRLA, Mucous membr. moist/pink, Other (mallampatti score is 4), EOMI, Sclerae nonicteric Neck: Supple, 2+ carotid pulse no bruit, No LAD, Other (neck circumference. 15 4/4"), Without JVD or thyroid abnormality Respiratory: Clear to auscultation bilaterally, Normal air movement Cardiovascular: Regular rate/rhythm, Normal S1 S2 Gastrointestinal: Normal bowel sounds, No tenderness Musculoskeletal: No tenderness Integumentary: No rashes Neurological: Normal gait, Normal speech, Normal strength at 5/5 x4 extr, Normal tone, Normal affect Lymphatics: No axilla or inguinal lymphadenopathy Assessment and Plan - Problems (Diagnosis) (1) Unstable angina Current Visit: Yes Status: Chronic Plan: will consult the Raslan keep her on lovenox and morphine as needed. (2) Atrial fibrillation Current Visit: Yes Status: Chronic Plan: will place on telemetry. She is not on a beta dae will start her on a low dose Qualifiers: Atrial fibrillation type: paroxysmal Qualified Code(s): I48.0 - Paroxysmal atrial fibrillation (3) HTN (hypertension) Current Visit: Yes Status: Chronic Plan: will need to recheck home meds Qualifiers: Hypertension type: primary hypertension Qualified Code(s): I10 - Essential (primary) hypertension (4) DM2 (diabetes mellitus, type 2) Current Visit: Yes Status: Chronic Plan: start her on her home dose of insulin. Will check an a1c with insulin sliding scale Qualifiers: Diabetes mellitus penitentiary insulin use: with penitentiary use Diabetes mellitus complication status: without complication Qualified Code(s): E11.9 - Type 2 diabetes mellitus without complications; Z79.4 - half-way (current) use of insulin (5) Sleep disturbances Current Visit: Yes Status: Acute Plan: considering she has a history of atrial fib. There is an 80% prevalence of sleep apnea. Will keep her on a pulse oximeter. If nocturnal hypoxia. We can order a home sleep study as an out patient. Discharge Plan: Home Plan to discharge in: 72 Hours - Advance Directives Does patient have a Living Will: No Does patient have a Durable POA for Healthcare: No - Code Status/Comfort Care Code Status Assessed: Yes Physician Review: Patient Assessed, Agree with Above Assessment and Plan Critical Care: No Time Spent Managing Pts Care (In Minutes): 70
[2023-10-02] MEDS ORDERED: MORPHINE 2 MG/ML SYR IV PRN (17:55)
[2023-10-02] MEDS: carvediloL 3.125 MG TAB PO SCH (18:32)
[2023-10-02] MEDS: ENOXAPARIN 80 MG/0.8 ML SQ SCH (20:36)
[2023-10-02] MEDS: INSULIN REGULAR (HUMAN) 100 UNIT/ML SQ SCH (20:40)
[2023-10-02] MEDS: INSULIN GLARGINE 100 UNIT/ML SQ SCH (20:40)
[2023-10-02] MEDS ORDERED: APIXABAN 5 MG TABLET PO SCH (21:00)
[2023-10-03 06:53] LABS: Absolute Basophils 0.1 K/uL (0-0.5); Absolute Eosinophils 0.2 K/uL (0-0.5); Absolute Lymphocytes (CBC) 2.8 K/uL (0.7-4.9); Absolute Monocytes 0.7 K/uL (0.1-1.3); Basophils % 0.8 % (0-1.3); Eosinophils % 2.7 % (0-4.4); Hematocrit 37.7 % (36.0-45.0); Hemoglobin 12.3 g/dL (12.0-15.0); Lymphocytes % 36.1 % (15.3-44.8); MCH 28.5 pg (27.0-35.0); MCHC 32.8 g/dL (32.0-36.0); MPV 7.9 fL (7.6-11.3); Monocytes % 9.2 % (3.3-12.3); Neutrophils % 51.2 % (41.7-73.7); Platelets 266 thou/uL (152-406); RBC Red Blood Cell Count 4.33 M/uL (3.86-4.86); Red Cell Distribution Width 13.9 % (12.1-15.2)
[2023-10-03 07:18] LABS: Albumin 2.9 g/dL (3.4-5.0); Albumin/Globulin Ratio 0.8 (1.1-1.8); Anion Gap 5.4 mEq/L (5.0-15.0); Bilirubin Total 0.5 mg/dL (0.2-1.0); Globulin 3.5 g/dL (2.3-3.5); Magnesium 2.1 mg/dL (1.6-2.4); Potassium 3.4 mEq/L (3.5-5.1); Protein, Total 6.4 g/dL (6.4-8.2); Thyroid Stimulating Hormone 0.991 uIU/mL (0.358-3.740)
[2023-10-03] MEDS: ALOGLIPTIN BENZOATE 12.5 MG TABLET PO SCH (08:17)
[2023-10-03] MEDS: ASPIRIN EC 81 MG TAB PO SCH (08:18)
[2023-10-03] MEDS ORDERED: SITAGLIPTIN PHOSPHATE 100 MG PO SCH (09:00)
[2023-10-03] MEDS ORDERED: BISMUTH SUBSALICYL 262MG/15ML-240 ML BTL PO PRN (09:45)
--- NOTE | 2023-10-03 09:48 | P.PN ---
Subjective Date of Service: 10/03/23 Primary Care Provider: Reid Chief Complaint: unstable angina Subjective: No new changes Review of Systems 10-point ROS is otherwise unremarkable Physical Examination - Vital Signs Temperature: 97.7 F Blood Pressure: 133/85 Pulse: 85 Respirations: 16 Pulse Ox (%): 98 - Physical Exam General: Alert, In no apparent distress HEENT: Atraumatic, PERRLA, EOMI Neck: Supple, JVD not distended Respiratory: Clear to auscultation bilaterally, Normal air movement Cardiovascular: Regular rate/rhythm, Normal S1 S2 Gastrointestinal: Normal bowel sounds, No tenderness Musculoskeletal: No tenderness Integumentary: No rashes Neurological: Normal speech, Normal tone, Normal affect Lymphatics: No axilla or inguinal lymphadenopathy - Studies Laboratory Data (last 24 hrs) 10/03/23 10/03/23 10/03/23 06:37 06:37 05:00 WBC 7.80 Hgb 12.3 Hct 37.7 Plt Count 266 Sodium 137 Potassium 3.4 L BUN 10 Creatinine 0.65 Glucose 143 H Magnesium 2.1 Total Bilirubin 0.5 AST 13 L ALT 22 Alkaline Phosphatase 87 Triglycerides 162 H Cancelled Cholesterol 119 Cancelled HDL Cholesterol 38 L Cancelled Cholesterol/HDL Ratio 3.13 Cancelled Assessment And Plan - Current Problems (Diagnosis) (1) Unstable angina Current Visit: Yes Status: Chronic Plan: will consult the Raslan keep her on lovenox and morphine as needed. 10/02 awaiting cath. Will try some medications for reflux (2) Atrial fibrillation Current Visit: Yes Status: Chronic Plan: will place on telemetry. She is not on a beta dae will start her on a low dose Qualifiers: Atrial fibrillation type: paroxysmal Qualified Code(s): I48.0 - Paroxysmal atrial fibrillation (3) HTN (hypertension) Current Visit: Yes Status: Chronic Plan: will need to recheck home meds Qualifiers: Hypertension type: primary hypertension Qualified Code(s): I10 - Essential (primary) hypertension (4) DM2 (diabetes mellitus, type 2) Current Visit: Yes Status: Chronic Plan: start her on her home dose of insulin. 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 There is an 80% prevalence of sleep apnea. Will keep her on a pulse oximeter. If nocturnal hypoxia. We can order a home sleep study as an out patient. Discharge Plan: Home Plan to discharge in: 24 Hours - Code Status/Comfort Care Code Status Assessed: No Physician Review: Patient Assessed, Agree with Above Assessment and Plan Critical Care: No Time Spent Managing PTS Care (In Minutes): 20
--- NOTE | 2023-10-03 12:53 | P.CNS ---
Date of Consult: 10/03/23 Primary Care Provider: Reid Chief Complaint: unstable angina History of Present Illness: Patient with PMH of COVID, AF, DM presented with left sided chest pain that has been going on for months, got worse over the last 48 hours, radiate to left arm and back, can happen with rest or exertion. Allergies No Known Allergies Allergy (Verified 05/28/20 01:38) Home Medications: Carvedilol [Coreg] 3.125 mg PO BID 6AM 6PM 10/03/23 Losartan Potassium 25 mg PO DAILY 10/03/23 Metformin HCl 500 mg PO BID 10/03/23 Simvastatin 20 mg PO BEDTIME 10/03/23 - Past Medical/Surgical History Diabetic: Yes -: IDDM -: HLD -: HTN -: X3 C- Section -: Choleysystectomy - Family History Mother Medical History: Heart disease, Hypertension - Social History Alcohol use: No CD- Drugs: No Caffeine use: No Place of Residence: Home Review of Systems 10-point ROS is otherwise unremarkable Physical Examination Temp Pulse Resp BP Pulse Ox 97.7 F 85 16 133/85 98 10/03/23 09:48 10/03/23 09:48 10/03/23 09:48 10/03/23 09:48 10/03/23 09:48 General: Alert, Oriented x3 HEENT: Atraumatic Neck: Supple Respiratory: Clear to auscultation bilaterally Cardiovascular: No edema, Normal S1 S2 Gastrointestinal: Normal bowel sounds Laboratory Data (last 24 hrs) 10/03/23 10/03/23 10/03/23 06:37 06:37 05:00 WBC 7.80 Hgb 12.3 Hct 37.7 Plt Count 266 Sodium 137 Potassium 3.4 L BUN 10 Creatinine 0.65 Glucose 143 H Magnesium 2.1 Total Bilirubin 0.5 AST 13 L ALT 22 Alkaline Phosphatase 87 Triglycerides 162 H Cancelled Cholesterol 119 Cancelled HDL Cholesterol 38 L Cancelled Cholesterol/HDL Ratio 3.13 Cancelled - Problems (1) Atrial fibrillation Current Visit: Yes Status: Chronic Plan: patient mention that she was diagnosed with that around covid time but she has not been using Eliquis, only take coreg so plan to continue that. will need outpatient 30 days monitor. Qualifiers: Atrial fibrillation type: paroxysmal Qualified Code(s): I48.0 - Paroxysmal atrial fibrillation (2) HTN (hypertension) Current Visit: Yes Status: Chronic Plan: Continue Coreg. get Echo Qualifiers: Hypertension type: primary hypertension Qualified Code(s): I10 - Essential (primary) hypertension (3) Unstable angina Current Visit: Yes Status: Chronic Plan: patient with risk factors including DM, HTN, AF and obesity, having unstable angina. NPO after midnight for labor delivery specialist in am.
[2023-10-04] MEDS: PANTOPRAZOLE 40MG TABLET PO SCH (05:32)
[2023-10-04 08:30] LABS: Absolute Basophils 0.1 K/uL (0-0.5); Absolute Eosinophils 0.2 K/uL (0-0.5); Absolute Lymphocytes (CBC) 2.5 K/uL (0.7-4.9); Absolute Monocytes 0.8 K/uL (0.1-1.3); Absolute Neutrophil 4.7 K/uL (1.8-8.0); Basophils % 0.6 % (0-1.3); Eosinophils % 2.9 % (0-4.4); Hematocrit 39.3 % (36.0-45.0); Hemoglobin 12.9 g/dL (12.0-15.0); Lymphocytes % 29.5 % (15.3-44.8); MCH 28.5 pg (27.0-35.0); MCHC 32.7 g/dL (32.0-36.0); MCV 87.1 fL (80-100); MPV 7.7 fL (7.6-11.3); Monocytes % 9.8 % (3.3-12.3); Neutrophils % 57.2 % (41.7-73.7); Platelets 278 thou/uL (152-406); RBC Red Blood Cell Count 4.51 M/uL (3.86-4.86); Red Cell Distribution Width 14.1 % (12.1-15.2)
[2023-10-04 08:45] LABS: Albumin/Globulin Ratio 0.8 (1.1-1.8); Anion Gap 6.6 mEq/L (5.0-15.0); Bilirubin Total 0.4 mg/dL (0.2-1.0); Globulin 3.6 g/dL (2.3-3.5); Potassium 3.6 mEq/L (3.5-5.1); Protein, Total 6.6 g/dL (6.4-8.2)
[2023-10-04] MEDS: NA CHLORIDE 0.9% 500 ML ONE (09:55)
[2023-10-04] MEDS ORDERED: LIDOCAINE 1% 20 ML MDV ONE (10:47)
[2023-10-04] MEDS ORDERED: HEPA 1000U/500MLS 2,000 UNIT/1,000 ML BAG IV ONE (10:47)
[2023-10-04] MEDS ORDERED: VERAPAMIL HCL 10 MG/4 ML VIAL IV ONE (10:47)
[2023-10-04] MEDS ORDERED: MIDAZOLAM HCL 2 MG/2 ML INJ ONE (10:48)
[2023-10-04] MEDS ORDERED: ATROPINE SULF 1 MG/10 ML SYR IV ONE (10:48)
[2023-10-04] MEDS ORDERED: FENTANYL CITR 100 MCG/2 ML ONE (10:48)
[2023-10-04] MEDS ORDERED: CLOPIDOGREL 75 MG TABLET ONE (10:49)
[2023-10-04] MEDS ORDERED: HEPARIN 10,000 UNIT/10 ML VIAL IV ONE (10:49)
[2023-10-04] MEDS ORDERED: TICAGRELOR 90 MG TABLET PO ONE (10:49)
[2023-10-04] MEDS ORDERED: HEPARIN 5000 UNIT/ML 1 ML VIAL ONE (10:49)
[2023-10-04] MEDS ORDERED: ASPIRIN 325 MG TAB ONE (10:50)
--- NOTE | 2023-10-04 12:17 | OP ---
Date of Procedure: 10/04/2023 Surgeon: Mayo Reynolds Procedure Performed: Selective coronary angiogram. Indication For Procedure: Unstable angina. Complications: None. Estimated Blood Loss: Less than 10 cc. Sedation Time: 20 minutes. Access: Right radial closed by TR band. Description Of Procedure: After risks, and benefits, and alternatives were explained to the patient, patient agreed to proceed with procedure and signed informed consent. The patient was brought back to the general labor, prepped and draped in a sterile fashion. Right radial access was obtained using ult rasound-guided micropuncture technique. 6-Greek sheath was inserted. Then we advanced a Cando 4.0 catheter over a J-wire to the aortic root. Selective coronary angiogram was done of the left and rig ht coronary system. At the end of procedure, the wire was removed and the access was closed with a T R band. The patient was moved back to recovery in stable condition. Findings: 1.Left main is normal. 2.LAD, mild luminal irregularities. 3.Left circ, mild luminal irregularities. 4.RCA; large, dominant, mild luminal irregularities. Assessment And Plan: Normal coronaries. Plan will be to look for alternative causes of patient's ch est pain, refer to GI for possible GI workup. MONACO/MODL Voice ID: [id number] Report ID: [id number]
[2023-10-04 12:58] VITALS: O2SAT 100
[2023-10-04 15:48] LABS: PT Prothrombin Time 11.3 SECONDS (9.5-12.5)
--- NOTE | 2023-10-04 17:24 | P.DS ---
Admission Date: 10/02/23 Discharge Date: 10/04/23 Primary Care Provider: Reid Reason for Admission: unstable angina - Problems (1) Unstable angina Current Visit: Yes Status: Chronic (2) Atrial fibrillation Current Visit: Yes Status: Chronic Qualifiers: Atrial fibrillation type: paroxysmal Qualified Code(s): I48.0 - Paroxysmal atrial fibrillation (3) HTN (hypertension) Current Visit: Yes Status: Chronic Qualifiers: Hypertension type: primary hypertension Qualified Code(s): I10 - Essential (primary) hypertension (4) DM2 (diabetes mellitus, type 2) Current Visit: Yes Status: Chronic Qualifiers: Diabetes mellitus snf insulin use: with snf use Diabetes mellitus complication status: without complication Qualified Code(s): E11.9 - Type 2 diabetes mellitus without complications; 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 she has been having chest pain on and off for the last year. She has a history of atrial fib, dm2, htn. She has been having worsening pain. The patient came to my office last monday. 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 She had several boughts of chest pain over the weekend. Was woken up by this on SAT. She had pulse of 124 and blood sugar of 325 at that time. The patient has never had a sleep study. She has an epworth of 4, stop bang of 4. So high risk of sleep apnea. The patient's is here. has not reported and apnea spells. Hospital Course: Patient was admtted for cardiac cath. She had one today which was essentially negative. Will need to do an out patient work up for atrial fib. Will discharge her on protonix. This may improve her symptoms. Which would lean more toward GERD as a cause of her chest pain. Vital Signs/Physical Exam: Temp Pulse Resp BP Pulse Ox 98.0 F 74 16 130/70 100 10/04/23 08:00 10/04/23 13:30 10/04/23 13:30 10/04/23 13:30 10/04/23 08:00 General: Alert, In no apparent distress HEENT: Atraumatic, PERRLA, EOMI Neck: Supple, JVD not distended Respiratory: Clear to auscultation bilaterally, Normal air movement Cardiovascular: Regular rate/rhythm, Normal S1 S2 Gastrointestinal: Normal bowel sounds, No tenderness Musculoskeletal: No tenderness Integumentary: No rashes Neurological: Normal speech, Normal tone, Normal affect Lymphatics: No axilla or inguinal lymphadenopathy Laboratory Data at Discharge: WBC 8.30 thou/uL (4.3-10.9) 10/04/23 08:17 Hgb 12.9 g/dL (12.0-15.0) 10/04/23 08:17 Hct 39.3 % (36.0-45.0) 10/04/23 08:17 Plt Count 278 thou/uL (152-406) 10/04/23 08:17 PT 11.3 SECONDS (9.5-12.5) 10/03/23 19:19 INR 1.00 10/03/23 19:19 APTT 26.0 SECONDS (24.3-36.9) 10/03/23 19:19 Sodium 138 mEq/L (136-145) 10/04/23 08:17 Potassium 3.6 mEq/L (3.5-5.1) 10/04/23 08:17 BUN 8 mg/dL (7-18) 10/04/23 08:17 Creatinine 0.70 mg/dL (0.55-1.02) 10/04/23 08:17 Glucose 145 mg/dL (74-106) H 10/04/23 08:17 Magnesium 2.1 mg/dL (1.6-2.4) 10/03/23 06:37 Total Bilirubin 0.4 mg/dL (0.2-1.0) 10/04/23 08:17 AST 18 U/L (15-37) 10/04/23 08:17 ALT 26 U/L (13-56) 10/04/23 08:17 Alkaline Phosphatase 85 U/L (45-117) 10/04/23 08:17 Triglycerides 162 mg/dL (<150) H 10/03/23 06:37 Cholesterol 119 mg/dL (<200) 10/03/23 06:37 HDL Cholesterol 38 mg/dL (40-60) L 10/03/23 06:37 Cholesterol/HDL Ratio 3.13 10/03/23 06:37 Home Medications: Carvedilol [Coreg] 3.125 mg PO BID 6AM 6PM 10/03/23 Losartan Potassium 25 mg PO DAILY 10/03/23 Metformin HCl 500 mg PO BID 10/03/23 Simvastatin 20 mg PO BEDTIME 10/03/23 Diet: ADA Activity: Ad regi Followup: Ivan Mathews MD [Primary Care Provider] - 1 Week Mayo Reynolds MD [ACTIVE - CAN ADMIT] - 1-2 Weeks Time spent managing pt's care (in minutes): 30
[2023-10-04 18:46] VITALS: BP 127/71; TEMP 98.2
--- NOTE | 2023-10-04 19:09 | P.PN ---
Subjective Date of Service: 10/04/23 Primary Care Provider: Reid Chief Complaint: unstable angina Subjective: No new changes Review of Systems 10-point ROS is otherwise unremarkable Physical Examination - Vital Signs Temperature: 98.2 F Blood Pressure: 127/71 Pulse: 68 Respirations: 18 Pulse Ox (%): 100 - Physical Exam General: Alert, Oriented x3 HEENT: Atraumatic Respiratory: Clear to auscultation bilaterally Cardiovascular: No edema, Normal S1 S2 Gastrointestinal: Normal bowel sounds - Studies Laboratory Data (last 24 hrs) 10/04/23 10/04/23 10/03/23 08:17 08:17 19:19 WBC 8.30 Hgb 12.9 Hct 39.3 Plt Count 278 PT 11.3 INR 1.00 APTT 26.0 Sodium 138 Potassium 3.6 BUN 8 Creatinine 0.70 Glucose 145 H Total Bilirubin 0.4 AST 18 ALT 26 Alkaline Phosphatase 85 Assessment And Plan - Current Problems (Diagnosis) (1) Atrial fibrillation Current Visit: Yes Status: Chronic Plan: patient mention that she was diagnosed with that around covid time but she has not been using Eliquis, only take coreg so plan to continue that. will need outpatient 30 days monitor. Qualifiers: Atrial fibrillation type: paroxysmal Qualified Code(s): I48.0 - Paroxysmal atrial fibrillation (2) HTN (hypertension) Current Visit: Yes Status: Chronic Plan: Continue Coreg/losartan. Qualifiers: Hypertension type: primary hypertension Qualified Code(s): I10 - Essential (primary) hypertension (3) Unstable angina Current Visit: Yes Status: Chronic Plan: patient had a heart cath that was normal, will need referral to GI for further work up on discharge.. Physician Review: Patient Assessed, Agree with Above Assessment and Plan
== END 2023-10-04 19:25 | disposition home or self-care (01) | DRG 287 ==
LOC: 2ND 16:09
PROVIDERS: ADMIT Internal Medicine; ATTEND Internal Medicine
PROC: B2111ZZ Fluoroscopy of Multiple Coronary Arteries using Low Osmolar Contrast (ICD-10-PCS; principal; 2023-10-04)
DX: I20.0 Unstable angina (principal); I48.0 Paroxysmal atrial fibrillation; I10 Essential (primary) hypertension; E11.9 Type 2 diabetes mellitus without complications; G47.9 Sleep disorder, unspecified; E78.5 Hyperlipidemia, unspecified; E66.9 Obesity, unspecified; Z68.32 Body mass index [BMI] 32.0-32.9, adult; Z86.16 Personal history of COVID-19; Z79.01 Long term (current) use of anticoagulants; Z79.4 Long term (current) use of insulin; Z79.84 Long term (current) use of oral hypoglycemic drugs; Z79.899 Other long term (current) drug therapy; Z90.49 Acquired absence of other specified parts of digestive tract; Z82.49 Family history of ischemic heart disease and other diseases of the circulatory system
CPT/HCPCS: 36415; 76937; 80053; 80061; 82947; 83036; 83735; 84443; 85025; 85610; 85730; 93454; 94760; 99152; 99153; C1893; J0461; J1644; J2001; J2250; J3010; J7040; Q9966